=== PATIENT | female | born 1935 | race Caucasian/White ===

== ENCOUNTER 2016-10-21 08:00 | Inpatient (IN) | payer MEDICARE ==
[2016-10-21] VITALS (14 sets, daily range): BP systolic 111–148; BP diastolic 54–101
[~2016-10-21] VITALS: Ht 152.4 cm; Wt 46.3 kg
[2016-10-21 08:41] LABS: BASO % 1 % (0-3); EOS % 1 % (0-3); HEMATOCRIT 41.5 % (36.0-47.0); HEMOGLOBIN 13.9 g/dL (12.0-15.5); LYMPH # 1.4 x10^3/uL (1.0-4.8); LYMPH % 21 % (24-48); MEAN CORPUSCULAR HEMOGLOBIN 30 pg (25-35); MEAN CORPUSCULAR HGB CONC 34 g/dL (31-37); MEAN CORPUSCULAR VOLUME 90 fL (79-100); MONO % 7 % (0-9); NEUT % 70 % (31-73); PLATELET COUNT 234 x10^3/uL (140-400); RED BLOOD COUNT 4.63 x10^6/uL (3.50-5.40); RED CELL DISTRIBUTION WIDTH 13.4 % (11.5-14.5); WHITE BLOOD COUNT 6.6 x10^3/uL (4.0-11.0)
--- NOTE | 2016-10-21 08:41 | RAD ---
Indication dizziness A single view of the chest was obtained. No prior imaging is available. There are probable background changes of emphysema or fibrosis. There are changes compatible with scarring at the lung apices. There is very minimal volume loss at the left lung base. This likely reflects atelectasis. Pneumonia is not entirely excluded but felt less likely. A definite acute finding in the chest is not seen. Significant pleural fluid is not present and there is no pneumothorax. Cardiac stent is noted IMPRESSION: Chronic changes. Minimal volume loss at the left lung base. See above discussion. No definite acute finding apparent in the chest
[2016-10-21] MEDS ORDERED: MECLIZINE HCL 12.5 MG TABLET. PO ONE (08:45)
[2016-10-21] MEDS ORDERED: ONDANSETRON PF 4 MG/2 ML VIAL. IV ONE (08:45)
[2016-10-21 08:49] LABS: CALCIUM 9.7 mg/dL (8.5-10.1); CREATININE 0.9 mg/dL (0.6-1.0); GFR 60.2; POTASSIUM 3.8 mmol/L (3.5-5.1)
--- NOTE | 2016-10-21 08:49 | EKG ---
[facility] [address] [place] [address] Test Date: 2016-10-21 Test Time: 08:17:22 Pat Name: JOSH BAUER Department: Room: Gender: F General Production Manager: : [id number] Requested By: Malcolm MEJIA Order Number: [id number] Reading MD: Elizabeth Moser Measurements Intervals [place] Rate: 90 P: 62 [place]: 144 QRS: 72 QRSD: 76 T: 62 QT: 354 QTc: 437 Interpretive Statements SINUS RHYTHM NORMAL ECG RI6.01 Unconfirmed report No previous ECG available for comparison Electronically Signed On 10-23-2016 17:18:09 CDT by Elizabeth Moser
--- NOTE | 2016-10-21 09:15 | RAD ---
CT of the head without contrast, 10/21/2016: History: Weakness, dizziness No previous studies are available at this time for comparison purposes. There is a moderate sized abnormal extra-axial fluid collection overlying the right cerebral hemisphere. It is most prominent in the frontoparietal regions. It demonstrates mixed internal densities suggesting hemorrhage of varying ages. Its configuration indicates a subdural location. There is a marked right to left shift of the midline structures with effacement of the right lateral ventricle. A tiny density projected over the inferior aspect of the right cerebellar hemisphere on one slice most likely represents partial volume averaging from the skull base. No definite intra-axial hemorrhage is seen. There is mild cerebellar atrophy. IMPRESSION: 1. Large right extra-axial fluid collection of mixed densities compatible with a subdural hemorrhage of varying ages, probably subacute.. 2. Considerable associated mass effect and [id number] midline shift. Note: The findings were called to personnel in the [facility] ER at 9:10 AM on 10/21/2016. PQRS Compliance Statement: One or more of the following individualized dose reduction techniques were utilized for this examination: 1. Automated exposure control 2. Adjustment of the mA and/or kV according to patient size 3. Use of iterative reconstruction technique
[2016-10-21] MEDS ORDERED: ACETAMINOPHEN 325 MG TABLET. PO PRN (09:30)
[2016-10-21] MEDS ORDERED: ONDANSETRON PF 4 MG/2 ML VIAL. IV PRN ×3 (09:30→14:45)
--- NOTE | 2016-10-21 09:30 | PHYS DOC ---
Past Medical History Past Medical History: No Pertinent History Past Surgical History: No Surgical History Alcohol Use: None Drug Use: None Adult General Chief Complaint Chief Complaint: NEURO SYMPTOMS/DEFICITS HPI HPI Patient is a 81 year old female who presents with her daughter for 1 week of headache and 2 days gait instability. She also has dizziness and nausea that started yesterday. States her headache is achy, constant, focal in her right frontoparietal area. She denies trauma, falls, vision changes, numbness, tingling, weakness, fever or chills, neck pain or manipulation, chest pain, dyspnea, palpitations, abdominal pain, diarrhea, dysuria. 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 Daughter states they had a fall at home last week some time, but the patient did not report an injury. Review of Systems Review of Systems Constitutional: Denies fever or chills [] Eyes: Denies change in visual acuity, redness, or eye pain [] HENT: Denies nasal congestion or sore throat [] Respiratory: Denies cough or shortness of breath [] Cardiovascular: No additional information not addressed in HPI [] GI: Denies abdominal pain, nausea, vomiting, bloody stools or diarrhea [] : Denies dysuria or hematuria [] Musculoskeletal: Denies back pain or joint pain [] Integument: Denies rash or skin lesions [] Neurologic: Denies focal weakness or sensory changes [] Endocrine: Denies polyuria or polydipsia [] Current Medications Current Medications Current Medications Medications (Trade) Dose Ordered Sig/[facility] Start Time Stop Time Status Last Admin Dose Admin Meclizine HCl (Antivert) 25 mg 1X ONCE 10/21/16 08:45 10/21/16 08:46 DC 10/21/16 09:08 25 MG Ondansetron HCl (Zofran) 4 mg 1X ONCE 10/21/16 08:45 10/21/16 08:46 DC 10/21/16 08:58 4 MG Allergies Allergies Allergies Coded Allergies Type Severity Reaction Last Updated Verified morphine Allergy Unknown 10/21/16 Yes Physical Exam Physical Exam Constitutional: Well developed, well nourished, no acute distress, non-toxic appearance. [] HENT: Normocephalic, atraumatic, bilateral external ears normal, oropharynx moist, no oral exudates, nose normal. [] Eyes: PERRLA, EOMI, conjunctiva normal, no discharge. [] Neck: Normal range of motion, no tenderness, supple, no stridor. [] Cardiovascular:Heart rate regular rhythm [] Lungs & Thorax: Bilateral breath sounds clear to auscultation [] Abdomen: Bowel sounds normal, soft, no tenderness. [] Skin: Warm, dry, no erythema. Right breast with plaque-like ruborous rash that is nontender and not indurated [] Back: Normal range of motion. [] Extremities: No tenderness, ROM intact, no edema. [] Neurologic: Alert and oriented X 3, normal motor function, normal sensory function, no focal deficits noted, no nystagmus, no extremity drift, cranial nerves II through XII intact, gait not tested. [] Psychologic: Affect normal, judgement normal, mood normal. [] Current Patient Data Vital Signs Vital Signs Date Time Temp Pulse Resp B/P Pulse Ox O2 Delivery O2 Flow Rate FiO2 10/21/16 08:41 98.8 89 18 155/69 99 Room Air 98.8 Lab Values Laboratory Tests Test 10/21/16 08:12 10/21/16 08:30 Glucose (Fingerstick) 95mg/dL (70-99) White Blood Count 6.6x10^3/uL (4.0-11.0) Red Blood Count 4.63x10^6/uL (3.50-5.40) Hemoglobin 13.9g/dL (12.0-15.5) Hematocrit 41.5% (36.0-47.0) Mean Corpuscular Volume 90fL (79-100) Mean Corpuscular Hemoglobin 30pg (25-35) Mean Corpuscular Hemoglobin Concent 34g/dL (31-37) Red Cell Distribution Width 13.4% (11.5-14.5) Platelet Count 234x10^3/uL (140-400) Neutrophils (%) (Auto) 70% (31-73) Lymphocytes (%) (Auto) 21% (24-48) L Monocytes (%) (Auto) 7% (0-9) Eosinophils (%) (Auto) 1% (0-3) Basophils (%) (Auto) 1% (0-3) Neutrophils # (Auto) 4.6x10^3uL (1.8-7.7) Lymphocytes # (Auto) 1.4x10^3/uL (1.0-4.8) Monocytes # (Auto) 0.4x10^3/uL (0.0-1.1) Eosinophils # (Auto) 0.1x10^3/uL (0.0-0.7) Basophils # (Auto) 0.0x10^3/uL (0.0-0.2) Prothrombin Time 13.3SEC (11.7-14.0) Prothrombin Time INR 1.1 (0.8-1.1) PTT 31SEC (24-38) Sodium Level 142mmol/L (136-145) Potassium Level 3.8mmol/L (3.5-5.1) Chloride Level 105mmol/L (98-107) Carbon Dioxide Level 27mmol/L (21-32) Anion Gap 10 (6-14) Blood Urea Nitrogen 13mg/dL (7-20) Creatinine 0.9mg/dL (0.6-1.0) Estimated GFR (Cockcroft-Gault) 60.2 Glucose Level 107mg/dL (70-99) H Calcium Level 9.7mg/dL (8.5-10.1) Troponin I Quantitative < 0.017ng/mL (0.000-0.055) Laboratory Tests 10/21/16 08:30 Laboratory Tests 10/21/16 08:30 EKG EKG EKG as interpreted by me as normal sinus rhythm, rate 90, no ST-T changes, normal intervals, no ectopy Radiology/Procedures Radiology/Procedures Chest xray as interpreted by me with no acute cardiopulmonary disease process Head CT without contrast IMPRESSION: 1. Large right extra-axial fluid collection of mixed densities compatible with a subdural hemorrhage of varying ages, probably subacute.. 2. Considerable associated mass effect and [id number] midline shift. Note: The findings were called to personnel in the [facility] ER at 9:10 AM on 10/21/2016. DICTATED and SIGNED BY: DIANE SARMIENTO MD DATE: 10/21/16 0902 Course & Med Decision Making Course & Med Decision Making Pertinent Labs and Imaging studies reviewed. (See chart for details) Laboratory evaluation is unremarkable. Head CT noted as above. Discussed case with Dr. Viveros, neurosurgery, who came to see the patient at bedside as she was apprehensive about admission and decision to accept procedure. She has agreed to surgical intervention will be admitted to the ICU. Discussed case with Dr. Freire, who will admit. [place]on[place] Disclaimer Dragon Disclaimer This electronic medical record was generated, in whole or in part, using a voice recognition dictation system. Departure Departure Impression: Primary Impression: Subdural hemorrhage Additional Impression: Dizziness Disposition: ADMITTED INPATIENT Condition: CRITICAL Referrals: TOD SAL MD (PCP) Problem Qualifiers Malcolm MEJIA MD Oct 21, 2016 09:30
[2016-10-21 09:31] LABS: INR 1.1 (0.8-1.1); PROTHROMBIN TIME PATIENT 13.3 SEC (11.7-14.0)
[2016-10-21] MEDS ORDERED: IV RINGERS,LACTATED 1000ML 1,000 ML IV SCH (09:54)
[2016-10-21] MEDS ORDERED: PROCHLORPERAZINE 10 MG/2 ML VIAL. IV PRN (10:00)
[2016-10-21] MEDS ORDERED: LIDOCAINE 1% 1 ML SYRINGE. ID PRN (10:00)
[2016-10-21] MEDS ORDERED: POTASSIUM CL 20MEQ D5-0.9%NACL 1,000 ML IV ONE (10:00)
[2016-10-21] MEDS ORDERED: fentaNYL PF VIAL 100 MCG/2 ML VIAL IV PRN ×3 (10:00→17:15)
[2016-10-21] MEDS ORDERED: PROPOFOL 20 ML IV ONE (10:19)
[2016-10-21] MEDS ORDERED: LIDOCAINE 2% 100 MG/5 ML SYRINGE. ONE (10:19)
[2016-10-21] MEDS ORDERED: ONDANSETRON PF 4 MG/2 ML VIAL. ONE (10:19)
[2016-10-21] MEDS ORDERED: fentaNYL PF VIAL 100 MCG/2 ML VIAL ONE (10:19)
[2016-10-21] MEDS ORDERED: DEXAMETHASONE SOD PHOS 20 MG/5 ML VIAL. ONE (10:19)
[2016-10-21] MEDS ORDERED: ROCURONIUM 50 MG/5 ML VIAL. ONE (10:20)
[2016-10-21] MEDS ORDERED: MINERAL OIL/PETROLATUM,WHITE OPHTH OINT 3.5GM TUBE. ONE (10:26)
[2016-10-21] MEDS ORDERED: BACITRACIN 50,000 UNIT in IV NORMAL SALINE 1000ML BAG 1,000 ML IRR ONE (11:30)
[2016-10-21] MEDS ORDERED: BUPIVAC MPF-EPI 0.5%-1:200000 30 ML VIAL. ONE (11:53)
[2016-10-21] MEDS ORDERED: SURGICEL HEMOSTAT 4X8 EACH. ONE (11:53)
[2016-10-21] MEDS ORDERED: GELATIN SPONGE SIZE 100. ONE (11:54)
[2016-10-21] MEDS ORDERED: THROMBIN TOPICAL 20,000 UNIT SPRAY.SYRN KIT TP ONE (11:54)
[2016-10-21] MEDS: fentaNYL PF VIAL 100 MCG/2 ML VIAL IV PRN ×3 (11:55→18:32)
[2016-10-21] MEDS ORDERED: PHENYLEPHRINE in 0.9% NACL PF 1 MG/10 ML DISP.SYRIN. IV ONE (12:56)
[2016-10-21] MEDS ORDERED: GLYCOPYRROLATE 1 MG/5 ML VIAL. ONE (12:56)
[2016-10-21] MEDS ORDERED: NEOSTIGMINE METHYLSULFATE 5 MG/5 ML SYRINGE. ONE (13:47)
[2016-10-21] MEDS ORDERED: DESFLURANE 31 TO 60 MINUTES IH ONE (13:49)
[2016-10-21] MEDS ORDERED: SEVOFLURANE 31 TO 60 MINUTES. IH ONE (13:49)
--- NOTE | 2016-10-21 14:44 | PDOC1 ---
History and Physical Date of Admission Date of Admission 10/21/16 Identification/Chief Complaint Chief Complaint dizzy Problems: Source Source: Caregiver, Chart review, Patient History of Present Illness History of Present Illness HPI HPI Patient is a 81 year old female who presents with her daughter for 1 week of headache and 2 days gait instability. pt lives with her , last time was seen was 5ds ago was normal. She denies fall. she feels some dizzy, nauseated from yesterday, frontal headache, constant. no other neurologic deficit. CT in ER showed a large right subdural hemarrhage with left shift, subacute. 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 Daughter states they had a fall at home last week some time, but the patient did not report an injury. Past Medical History Cardiovascular: CAD Past Surgical History Past Surgical History: No pertinent history Family History Family History: No Significant Social History Smoke: No ALCOHOL: none Drugs: None Current Problem List Problem List Problems Medical Problems: (1) Dizziness Status: Acute (2) Subdural hemorrhage Status: Acute Current Medications Current Medications Current Medications Medications (Trade) Dose Ordered Sig/[facility] Start Time Stop Time Status Last Admin Dose Admin Acetaminophen 650 mg 650 mg PRN Q4HRS PRN 10/21/16 09:30 10/22/16 09:29 Bacitracin/Sodium Chloride (Bacitracin/Iv Sodium Chloride 0.9% 1000ml Bag) 1,000 ml @ 1,000 mls/hr 1X PERIOP ONCE 10/21/16 11:30 10/21/16 12:29 DC 10/21/16 13:12 Bupivacaine HCl/ Epinephrine Bitart (Sensorcain-Mpf Epi 0.5%-1:[id number]) 30 ml STK-MED ONCE 10/21/16 11:53 10/21/16 11:54 DC 10/21/16 13:12 4 ML Cefazolin Sodium/ Dextrose (Ancef 2gm Premix) 50 ml @ 100 mls/hr 1X PREOP 10/21/16 09:45 10/21/16 18:00 10/21/16 13:07 100 MLS/HR Cellulose 1 each STK-MED ONCE 10/21/16 11:53 10/21/16 11:54 DC Desflurane (Suprane) 30 ml STK-MED ONCE 10/21/16 13:49 10/21/16 13:50 DC Dexamethasone Sodium Phosphate (Decadron) 20 mg STK-MED ONCE 10/21/16 10:19 10/21/16 10:20 DC Fentanyl Citrate (Fentanyl 2ml Vial) 100 mcg STK-MED ONCE 10/21/16 10:19 10/21/16 10:20 DC Fentanyl Citrate 50 mcg 50 mcg PRN Q5MIN PRN 10/21/16 10:00 10/22/16 09:59 Gelatin (Gelfoam Size 100) 1 each STK-MED ONCE 10/21/16 11:54 10/21/16 11:55 DC 10/21/16 13:12 1 EACH Glycopyrrolate (Robinul) 1 mg STK-MED ONCE 10/21/16 12:56 10/21/16 12:57 DC Lactated Ringer's (Iv Lactated Ringers) 1,000 ml @ 30 mls/hr Q24H 10/21/16 09:54 10/21/16 21:53 Lidocaine HCl (Lidocaine HCl 2% Abboject) 100 mg STK-MED ONCE 10/21/16 10:19 10/21/16 10:20 DC Meclizine HCl (Antivert) 25 mg 1X ONCE 10/21/16 08:45 10/21/16 08:46 DC 10/21/16 09:08 25 MG Multi-Ingred Cream/Lotion/Oil/ Oint 7 luksaz 7 lukasz STK-MED ONCE 10/21/16 10:26 10/21/16 10:27 DC Neostigmine Methylsulfate 5 mg STK-MED ONCE 10/21/16 13:47 10/21/16 13:48 DC Ondansetron HCl (Zofran) 4 mg PRN Q6HRS PRN 10/21/16 10:00 10/22/16 09:59 Ondansetron HCl 4 mg 4 mg STK-MED ONCE 10/21/16 10:19 10/21/16 10:20 DC Phenylephrine HCl 1 mg STK-MED ONCE 10/21/16 12:56 10/21/16 12:57 DC Potassium Chloride/Dextrose/ Sod Cl 1,000 ml @ 75 mls/hr 1X ONCE 10/21/16 10:00 10/21/16 23:19 10/21/16 10:18 75 MLS/HR Prochlorperazine Edisylate (Compazine) 5 mg PACU PRN PRN 10/21/16 10:00 10/22/16 09:59 Propofol (Diprivan) 20 ml @ As Directed STK-MED ONCE 10/21/16 10:19 10/21/16 10:20 DC Rocuronium [place] (Zemuron) 50 mg STK-MED ONCE 10/21/16 10:20 10/21/16 10:21 DC Sevoflurane (Ultane) 30 ml STK-MED ONCE 10/21/16 13:49 10/21/16 13:50 DC Thrombin 20,000 unit STK-MED ONCE 10/21/16 11:54 10/21/16 11:55 DC 10/21/16 13:12 20,000 UNIT Allergies Allergies Allergies Coded Allergies Type Severity Reaction Last Updated Verified morphine Allergy Unknown 10/21/16 Yes ROS Review of System CONSTITUTIONAL: No fever or chills EYES: No recent changes SKIN: No rash or itching CARDIOVASCULAR: No chest pain, syncope, palpitations, or edema RESPIRATORY: No SOB or cough GASTROINTESTINAL: No nausea, vomiting or abdominal pain NEUROLOGICAL: No headaches or weakness ENDOCRINE: No cold or heat intolerance GENITOURINARY: No urgency or frequency of urination MUSCULOSKELETAL: No back pain or joint pain LYMPHATICS: No enlarged lymph nodes PSYCHIATRIC: No anxiety or depression Physical Exam Physical Exam GEN.: No apparent distress. Alert and oriented. HEENT: Head is normocephalic, atraumatic NECK: Supple. LUNGS: Clear to auscultation. HEART: RRR, S1, S2 present. Peripheral pulses intact ABDOMEN: Soft, nontender. Positive bowel sounds. EXTREMITIES: Without any cyanosis. NEUROLOGIC: Normal speech, normal tone PSYCHIATRIC: Normal affect, normal mood. SKIN: No ulcerations Vitals Vitals Vital Signs Date Time Temp Pulse Resp B/P Pulse Ox O2 Delivery O2 Flow Rate FiO2 10/21/16 14:28 85 12 140/69 98 Room Air 10/21/16 14:23 10 10/21/16 14:16 99.0 99.0 Labs Labs Laboratory Tests Test 10/21/16 08:12 10/21/16 08:30 Glucose (Fingerstick) 95mg/dL (70-99) White Blood Count 6.6x10^3/uL (4.0-11.0) Red Blood Count 4.63x10^6/uL (3.50-5.40) Hemoglobin 13.9g/dL (12.0-15.5) Hematocrit 41.5% (36.0-47.0) Mean Corpuscular Volume 90fL (79-100) Mean Corpuscular Hemoglobin 30pg (25-35) Mean Corpuscular Hemoglobin Concent 34g/dL (31-37) Red Cell Distribution Width 13.4% (11.5-14.5) Platelet Count 234x10^3/uL (140-400) Neutrophils (%) (Auto) 70% (31-73) Lymphocytes (%) (Auto) 21% (24-48) Monocytes (%) (Auto) 7% (0-9) Eosinophils (%) (Auto) 1% (0-3) Basophils (%) (Auto) 1% (0-3) Neutrophils # (Auto) 4.6x10^3uL (1.8-7.7) Lymphocytes # (Auto) 1.4x10^3/uL (1.0-4.8) Monocytes # (Auto) 0.4x10^3/uL (0.0-1.1) Eosinophils # (Auto) 0.1x10^3/uL (0.0-0.7) Basophils # (Auto) 0.0x10^3/uL (0.0-0.2) Prothrombin Time 13.3SEC (11.7-14.0) Prothromb Time International Ratio 1.1 (0.8-1.1) Activated Partial Thromboplast Time 31SEC (24-38) Sodium Level 142mmol/L (136-145) Potassium Level 3.8mmol/L (3.5-5.1) Chloride Level 105mmol/L (98-107) Carbon Dioxide Level 27mmol/L (21-32) Anion Gap 10 (6-14) Blood Urea Nitrogen 13mg/dL (7-20) Creatinine 0.9mg/dL (0.6-1.0) Estimated GFR (Cockcroft-Gault) 60.2 Glucose Level 107mg/dL (70-99) Calcium Level 9.7mg/dL (8.5-10.1) Troponin I Quantitative < 0.017ng/mL (0.000-0.055) Laboratory Tests Test 10/21/16 08:12 10/21/16 08:30 Glucose (Fingerstick) 95mg/dL (70-99) White Blood Count 6.6x10^3/uL (4.0-11.0) Red Blood Count 4.63x10^6/uL (3.50-5.40) Hemoglobin 13.9g/dL (12.0-15.5) Hematocrit 41.5% (36.0-47.0) Mean Corpuscular Volume 90fL (79-100) Mean Corpuscular Hemoglobin 30pg (25-35) Mean Corpuscular Hemoglobin Concent 34g/dL (31-37) Red Cell Distribution Width 13.4% (11.5-14.5) Platelet Count 234x10^3/uL (140-400) Neutrophils (%) (Auto) 70% (31-73) Lymphocytes (%) (Auto) 21% (24-48) Monocytes (%) (Auto) 7% (0-9) Eosinophils (%) (Auto) 1% (0-3) Basophils (%) (Auto) 1% (0-3) Neutrophils # (Auto) 4.6x10^3uL (1.8-7.7) Lymphocytes # (Auto) 1.4x10^3/uL (1.0-4.8) Monocytes # (Auto) 0.4x10^3/uL (0.0-1.1) Eosinophils # (Auto) 0.1x10^3/uL (0.0-0.7) Basophils # (Auto) 0.0x10^3/uL (0.0-0.2) Prothrombin Time 13.3SEC (11.7-14.0) Prothromb Time International Ratio 1.1 (0.8-1.1) Activated Partial Thromboplast Time 31SEC (24-38) Sodium Level 142mmol/L (136-145) Potassium Level 3.8mmol/L (3.5-5.1) Chloride Level 105mmol/L (98-107) Carbon Dioxide Level 27mmol/L (21-32) Anion Gap 10 (6-14) Blood Urea Nitrogen 13mg/dL (7-20) Creatinine 0.9mg/dL (0.6-1.0) Estimated GFR (Cockcroft-Gault) 60.2 Glucose Level 107mg/dL (70-99) Calcium Level 9.7mg/dL (8.5-10.1) Troponin I Quantitative < 0.017ng/mL (0.000-0.055) VTE Prophylaxis Ordered VTE Prophylaxis Devices: Yes VTE Pharmacological Prophylaxi: No Assessment/Plan Assessment/Plan 1. dizzy, headache 2/2 subacute rt subdural hemarrhage, likely 2/2 fall at home 2. HTN 3. H/O cad WITH pci PLAN: icu CARE NEUROSX consulted, craniotomy and hematoma evacuation on 10/21 keep BP <160/100 need home meds gi ppx ptot tmr if stable SAVANNA BLANCO MD Oct 21, 2016 14:44
[2016-10-21] MEDS ORDERED: hydrALAZINE 20 MG/ML VIAL. IVP PRN (14:45)
[2016-10-21] MEDS: PANTOPRAZOLE 40 MG TABLET.DR. PO SCH (16:00)
[2016-10-21] MEDS ORDERED: diphenhydrAMINE HCL 25 MG CAPSULE PO PRN (17:15)
[2016-10-21] MEDS ORDERED: MAGNESIUM HYDROXIDE 2,400 MG/30 ML ORAL.SUSP. PO PRN (17:15)
[2016-10-21] MEDS ORDERED: MAG HYDROX/ALUMINUM HYD/SIMETH 30 ML ORAL.SUSP PO PRN (17:15)
[2016-10-21] MEDS ORDERED: 0.9 % SODIUM CHLORIDE 10 ML DISP.SYRIN. IV PRN (17:15)
[2016-10-21] MEDS ORDERED: DEXTROSE 50% 25 GM / 50ML DISP.SYRIN. IV PRN (17:15)
[2016-10-21] MEDS ORDERED: CALCIUM CARBONATE 500 MG TAB.CHEW PO PRN (17:15)
[2016-10-21] MEDS ORDERED: diphenhydrAMINE 50 MG/ML VIAL IV PRN (17:15)
[2016-10-21] MEDS: DOCUSATE SODIUM 100 MG CAPSULE. PO SCH (20:48)
[2016-10-22] VITALS (17 sets, daily range): BP systolic 105–152; BP diastolic 44–78
[2016-10-22] MEDS: fentaNYL PF VIAL 100 MCG/2 ML VIAL IV PRN ×3 (04:54→17:10)
[2016-10-22 05:12] LABS: BASO % 0 % (0-3); EOS % 0 % (0-3); HEMATOCRIT 35.9 % (36.0-47.0); HEMOGLOBIN 12.2 g/dL (12.0-15.5); LYMPH # 1.6 x10^3/uL (1.0-4.8); LYMPH % 18 % (24-48); MEAN CORPUSCULAR HEMOGLOBIN 30 pg (25-35); MEAN CORPUSCULAR HGB CONC 34 g/dL (31-37); MEAN CORPUSCULAR VOLUME 89 fL (79-100); MONO % 8 % (0-9); NEUT % 74 % (31-73); PLATELET COUNT 206 x10^3/uL (140-400); RED BLOOD COUNT 4.03 x10^6/uL (3.50-5.40); RED CELL DISTRIBUTION WIDTH 13.2 % (11.5-14.5); WHITE BLOOD COUNT 8.8 x10^3/uL (4.0-11.0)
[2016-10-22 05:28] LABS: CREATININE 0.7 mg/dL (0.6-1.0); GFR 80.5; POTASSIUM 4.4 mmol/L (3.5-5.1)
[2016-10-22] MEDS ORDERED: IV NORMAL SALINE 1000ML BAG 1,000 ML IV ONE (08:45)
[2016-10-22] MEDS: PANTOPRAZOLE 40 MG TABLET.DR. PO SCH (09:30)
[2016-10-22] MEDS: DOCUSATE SODIUM 100 MG CAPSULE. PO SCH ×2 (09:30→21:00)
--- NOTE | 2016-10-22 12:24 | PDOC ---
PROGRESS NOTES Chief Complaint Chief Complaint 1. dizzy, headache 2/2 subacute rt subdural hemarrhage, likely 2/2 fall at home , s/p rt craniotomy and hematoma evacuation 10/21 2. HTN 3. H/O cad WITH pci PLAN: [facility] consulted, craniotomy and hematoma evacuation on 10/21 keep BP <160/100 need home meds gi ppx add lisinopril 10mg daily swallow eval ptot History of Present Illness History of Present Illness feels ok, headache better 1 PARAM sangueous drainage Vitals Vitals Vital Signs Date Time Temp Pulse Resp B/P Pulse Ox O2 Delivery O2 Flow Rate FiO2 10/22/16 09:00 98 26 152/73 100 Room Air 10/22/16 04:00 98.2 98.2 10/21/16 14:30 2.0 Physical Exam Physical Exam 1 PARAM sangueous drainage General: Alert, Oriented X3, Cooperative Heart: Regular rate, Normal S1, Normal S2 Lungs: Clear Abdomen: Normal bowel sounds, Soft Extremities: No clubbing Labs LABS Laboratory Tests Test 10/22/16 04:40 10/22/16 04:45 White Blood Count 8.8x10^3/uL (4.0-11.0) Red Blood Count 4.03x10^6/uL (3.50-5.40) Hemoglobin 12.2g/dL (12.0-15.5) Hematocrit 35.9% (36.0-47.0) Mean Corpuscular Volume 89fL (79-100) Mean Corpuscular Hemoglobin 30pg (25-35) Mean Corpuscular Hemoglobin Concent 34g/dL (31-37) Red Cell Distribution Width 13.2% (11.5-14.5) Platelet Count 206x10^3/uL (140-400) Neutrophils (%) (Auto) 74% (31-73) Lymphocytes (%) (Auto) 18% (24-48) Monocytes (%) (Auto) 8% (0-9) Eosinophils (%) (Auto) 0% (0-3) Basophils (%) (Auto) 0% (0-3) Neutrophils # (Auto) 6.5x10^3uL (1.8-7.7) Lymphocytes # (Auto) 1.6x10^3/uL (1.0-4.8) Monocytes # (Auto) 0.7x10^3/uL (0.0-1.1) Eosinophils # (Auto) 0.0x10^3/uL (0.0-0.7) Basophils # (Auto) 0.0x10^3/uL (0.0-0.2) Sodium Level 139mmol/L (136-145) Potassium Level 4.4mmol/L (3.5-5.1) Chloride Level 106mmol/L (98-107) Carbon Dioxide Level 22mmol/L (21-32) Anion Gap 11 (6-14) Blood Urea Nitrogen 14mg/dL (7-20) Creatinine 0.7mg/dL (0.6-1.0) Estimated GFR (Cockcroft-Gault) 80.5 Glucose Level 92mg/dL (70-99) Calcium Level 9.0mg/dL (8.5-10.1) Review of Systems Review of Systems no fever, chills, sob or chest pain Assessment and Plan Assessmemt and Plan Problems Medical Problems: (1) Dizziness Status: Acute (2) Subdural hemorrhage Status: Acute Problems: Comment Review of Relevant I have reviewed the following items misael (where applicable) has been applied. Labs Laboratory Tests Test 10/21/16 08:12 10/21/16 08:30 10/21/16 11:10 10/22/16 04:40 Glucose (Fingerstick) 95mg/dL (70-99) White Blood Count 6.6x10^3/uL (4.0-11.0) 8.8x10^3/uL (4.0-11.0) Red Blood Count 4.63x10^6/uL (3.50-5.40) 4.03x10^6/uL (3.50-5.40) Hemoglobin 13.9g/dL (12.0-15.5) 12.2g/dL (12.0-15.5) Hematocrit 41.5% (36.0-47.0) 35.9% (36.0-47.0) Mean Corpuscular Volume 90fL (79-100) 89fL (79-100) Mean Corpuscular Hemoglobin 30pg (25-35) 30pg (25-35) Mean Corpuscular Hemoglobin Concent 34g/dL (31-37) 34g/dL (31-37) Red Cell Distribution Width 13.4% (11.5-14.5) 13.2% (11.5-14.5) Platelet Count 234x10^3/uL (140-400) 206x10^3/uL (140-400) Neutrophils (%) (Auto) 70% (31-73) 74% (31-73) Lymphocytes (%) (Auto) 21% (24-48) 18% (24-48) Monocytes (%) (Auto) 7% (0-9) 8% (0-9) Eosinophils (%) (Auto) 1% (0-3) 0% (0-3) Basophils (%) (Auto) 1% (0-3) 0% (0-3) Neutrophils # (Auto) 4.6x10^3uL (1.8-7.7) 6.5x10^3uL (1.8-7.7) Lymphocytes # (Auto) 1.4x10^3/uL (1.0-4.8) 1.6x10^3/uL (1.0-4.8) Monocytes # (Auto) 0.4x10^3/uL (0.0-1.1) 0.7x10^3/uL (0.0-1.1) Eosinophils # (Auto) 0.1x10^3/uL (0.0-0.7) 0.0x10^3/uL (0.0-0.7) Basophils # (Auto) 0.0x10^3/uL (0.0-0.2) 0.0x10^3/uL (0.0-0.2) Prothrombin Time 13.3SEC (11.7-14.0) Prothromb Time International Ratio 1.1 (0.8-1.1) Activated Partial Thromboplast Time 31SEC (24-38) Sodium Level 142mmol/L (136-145) Potassium Level 3.8mmol/L (3.5-5.1) Chloride Level 105mmol/L (98-107) Carbon Dioxide Level 27mmol/L (21-32) Anion Gap 10 (6-14) Blood Urea Nitrogen 13mg/dL (7-20) Creatinine 0.9mg/dL (0.6-1.0) Estimated GFR (Cockcroft-Gault) 60.2 Glucose Level 107mg/dL (70-99) Calcium Level 9.7mg/dL (8.5-10.1) Troponin I Quantitative < 0.017ng/mL (0.000-0.055) Nasal Screen MRSA (PCR) Negative (Negative) Test 10/22/16 04:45 Sodium Level 139mmol/L (136-145) Potassium Level 4.4mmol/L (3.5-5.1) Chloride Level 106mmol/L (98-107) Carbon Dioxide Level 22mmol/L (21-32) Anion Gap 11 (6-14) Blood Urea Nitrogen 14mg/dL (7-20) Creatinine 0.7mg/dL (0.6-1.0) Estimated GFR (Cockcroft-Gault) 80.5 Glucose Level 92mg/dL (70-99) Calcium Level 9.0mg/dL (8.5-10.1) Laboratory Tests Test 10/22/16 04:40 10/22/16 04:45 White Blood Count 8.8x10^3/uL (4.0-11.0) Red Blood Count 4.03x10^6/uL (3.50-5.40) Hemoglobin 12.2g/dL (12.0-15.5) Hematocrit 35.9% (36.0-47.0) Mean Corpuscular Volume 89fL (79-100) Mean Corpuscular Hemoglobin 30pg (25-35) Mean Corpuscular Hemoglobin Concent 34g/dL (31-37) Red Cell Distribution Width 13.2% (11.5-14.5) Platelet Count 206x10^3/uL (140-400) Neutrophils (%) (Auto) 74% (31-73) Lymphocytes (%) (Auto) 18% (24-48) Monocytes (%) (Auto) 8% (0-9) Eosinophils (%) (Auto) 0% (0-3) Basophils (%) (Auto) 0% (0-3) Neutrophils # (Auto) 6.5x10^3uL (1.8-7.7) Lymphocytes # (Auto) 1.6x10^3/uL (1.0-4.8) Monocytes # (Auto) 0.7x10^3/uL (0.0-1.1) Eosinophils # (Auto) 0.0x10^3/uL (0.0-0.7) Basophils # (Auto) 0.0x10^3/uL (0.0-0.2) Sodium Level 139mmol/L (136-145) Potassium Level 4.4mmol/L (3.5-5.1) Chloride Level 106mmol/L (98-107) Carbon Dioxide Level 22mmol/L (21-32) Anion Gap 11 (6-14) Blood Urea Nitrogen 14mg/dL (7-20) Creatinine 0.7mg/dL (0.6-1.0) Estimated GFR (Cockcroft-Gault) 80.5 Glucose Level 92mg/dL (70-99) Calcium Level 9.0mg/dL (8.5-10.1) Medications Current Medications Ondansetron HCl (Zofran) 4 mg 1X ONCE IV Last administered on 10/21/16 08:58 ; Start 10/21/16 at 08:45; Stop 10/21/16 at 08:46; Status DC Meclizine HCl (Antivert) 25 mg 1X ONCE PO Last administered on 10/21/16 09:08 ; Start 10/21/16 at 08:45; Stop 10/21/16 at 08:46; Status DC Ondansetron HCl (Zofran) 4 mg PRN Q8HRS PRN IV NAUSEA/VOMITING; Start 10/21/16 at 09:30; Stop 10/22/16 at 09:29; Status DC Fentanyl Citrate (Fentanyl 2ml Vial) 50 mcg PRN Q2HR PRN IV PAIN Last administered on 10/22/16 04:54; Start 10/21/16 at 09:30; Stop 10/22/16 at 09:29 ; Status DC Acetaminophen 650 mg 650 mg PRN Q4HRS PRN PO FEVER; Start 10/21/16 at 09:30; Stop 10/22/16 at 09:29; Status DC Potassium Chloride/Dextrose/ Sod Cl 1,000 ml @ 75 mls/hr 1X ONCE IV Last administered on 4/21/17at 10:18; Start 10/21/16 at 10:00; Stop 10/21/16 at 23:19 ; Status DC Cefazolin Sodium/ Dextrose (Ancef 2gm Premix) 50 ml @ 100 mls/hr 1X PREOP IV Last administered on 10/21/16t 13:07; Start 10/21/16 at 09:45; Stop 10/21/16 at 18:00; Status DC Ondansetron HCl (Zofran) 4 mg PRN Q6HRS PRN IV NAUSEA/VOMITING; Start 10/21/16 at 10:00; Stop 10/22/16 at 09:59; Status DC Fentanyl Citrate (Fentanyl 2ml Vial) 25 mcg PRN Q5MIN PRN IV MILD PAIN Last administered on 10/21/16t 14:37; Start 10/21/16 at 10:00; Stop 10/22/16 at 09:59 ; Status DC Fentanyl Citrate 50 mcg 50 mcg PRN Q5MIN PRN IV MODERATE PAIN; Start 10/21/16 at 10:00; Stop 10/22/16 at 09:59; Status DC Lactated Ringer's (Iv Lactated Ringers) 1,000 ml @ 30 mls/hr Q24H IV ; Start at 09:54; Stop 10/21/16 at 21:53; Status DC Lidocaine HCl 2 ml PRN 1X PRN ID PRIOR TO IV START; Start 10/21/16 at 10:00; Stop 10/22/16 at 09:59; Status DC Prochlorperazine Edisylate (Compazine) 5 mg PACU PRN PRN IV NAUSEA, MRX1; Start 10/21/16 at 10:00; Stop 10/22/16 at 09:59; Status DC Dexamethasone Sodium Phosphate (Decadron) 20 mg STK-MED ONCE .ROUTE ; Start at 10:19; Stop 10/21/16 at 10:20; Status DC Ondansetron HCl 4 mg 4 mg STK-MED ONCE .ROUTE ; Start 10/21/16 at 10:19; Stop at 10:20; Status DC Propofol (Diprivan) 20 ml @ As Directed STK-MED ONCE IV ; Start 10/21/16 at 10: 19; Stop 10/21/16 at 10:20; Status DC Lidocaine HCl (Lidocaine HCl 2% Abboject) 100 mg STK-MED ONCE .ROUTE ; Start at 10:19; Stop 10/21/16 at 10:20; Status DC Fentanyl Citrate (Fentanyl 2ml Vial) 100 mcg STK-MED ONCE .ROUTE ; Start at 10:19; Stop 10/21/16 at 10:20; Status DC Rocuronium [place] (Zemuron) 50 mg STK-MED ONCE .ROUTE ; Start 10/21/16 at 10:20 ; Stop 10/21/16 at 10:21; Status DC Multi-Ingred Cream/Lotion/Oil/ Oint 7 lukasz 7 lukasz STK-MED ONCE .ROUTE ; Start at 10:26; Stop 10/21/16 at 10:27; Status DC Bacitracin/Sodium Chloride (Bacitracin/Iv Sodium Chloride 0.9% 1000ml Bag) 1, 000 ml @ 1,000 mls/hr 1X PERIOP ONCE IRR Last administered on 10/21/16 13:12 ; Start 10/21/16 at 11:30; Stop 10/21/16 at 12:29; Status DC Cellulose 1 each STK-MED ONCE .ROUTE ; Start 10/21/16 at 11:53; Stop 10/21/16 at 11:54; Status DC Bupivacaine HCl/ Epinephrine Bitart (Sensorcain-Mpf Epi 0.5%-1:[id number]) 30 ml STK -MED ONCE .ROUTE Last administered on 10/21/16 13:12; Start 10/21/16 at 11:53 ; Stop 10/21/16 at 11:54; Status DC Gelatin (Gelfoam Size 100) 1 each STK-MED ONCE .ROUTE Last administered on 13:12; Start 10/21/16 at 11:54; Stop 10/21/16 at 11:55; Status DC Thrombin 20,000 unit STK-MED ONCE TP Last administered on 10/21/16 13:12; Start 10/21/16 at 11:54; Stop 10/21/16 at 11:55; Status DC Phenylephrine HCl 1 mg STK-MED ONCE IV ; Start 10/21/16 at 12:56; Stop 10/21/16 at 12:57; Status DC Glycopyrrolate (Robinul) 1 mg STK-MED ONCE .ROUTE ; Start 10/21/16 at 12:56; Stop 10/21/16 at 12:57; Status DC Neostigmine Methylsulfate 5 mg STK-MED ONCE .ROUTE ; Start 10/21/16 at 13:47; Stop 10/21/16 at 13:48; Status DC Desflurane (Suprane) 30 ml STK-MED ONCE IH ; Start 10/21/16 at 13:49; Stop 10/21 at 13:50; Status DC Sevoflurane (Ultane) 30 ml STK-MED ONCE IH ; Start 10/21/16 at 13:49; Stop 10/21 at 13:50; Status DC Acetaminophen (Tylenol) 650 mg PRN Q6HRS PRN PO FEVER; Start 10/21/16 at 14:45 Ondansetron HCl (Zofran) 4 mg PRN Q6HRS PRN IV NAUSEA/VOMITING; Start 10/21/16 at 14:45 Hydralazine HCl (Apresoline) 5 mg PRN Q4HRS PRN IVP ELEVATED BP, SEE COMMENTS; Start 10/21/16 at 14:45 Pantoprazole Sodium (Protonix) 40 mg DAILYAC PO Last administered on 10/22/16t 09:30; Start 10/21/16 at 15:00 Al Hydroxide/Mg Hydroxide (Mylanta Plus Xs) 30 ml PRN Q3HRS PRN PO HEARTBURN / GAS; Start 10/21/16 at 17:15 Calcium Carbonate/ Glycine (Tums) 500 mg PRN Q3HRS PRN PO INDIGESTION; Start at 17:15 Diphenhydramine HCl (Benadryl) 25 mg PRN Q6HRS PRN PO ITCHING; Start 10/21/16 at 17:15 Diphenhydramine HCl (Benadryl) 25 mg PRN Q6HRS PRN IV ITCHING; Start 10/21/16 at 17:15 Sodium Chloride (Normal Saline Flush) 3 ml QSHIFT PRN IV AFTER MEDS AND BLOOD DRAWS; Start 10/21/16 at 17:15 Dextrose (Dextrose 50%-Water Syringe) 12.5 gm PRN Q15MIN PRN IV SEE COMMENTS; Start 10/21/16 at 17:15 Docusate Sodium (Colace) 100 mg BID PO Last administered on 10/22/16t 09:30; Start 10/21/16 at 21:00 Magnesium Hydroxide (Milk Of Magnesia) 2,400 mg PRN Q12HR PRN PO CONSTIPATION; Start 10/21/16 at 17:15 Ondansetron HCl 4 mg 4 mg PRN Q6HRS PRN IV NAUESA, 1ST CHOICE; Start 10/21/16 at 17:15 Cefazolin Sodium/ Sodium Chloride (Ancef/Iv Sodium Chloride 0.9% 50ml) 50 ml @ 100 mls/hr Q8H IV Last administered on 10/22/16t 04:43; Start 10/21/16 at 21:00 ; Stop 10/22/16 at 13:29 Fentanyl Citrate (Fentanyl 2ml Vial) 50 mcg PRN Q2HR PRN IV PAIN; Start at 17:15 Fentanyl Citrate 25 mcg 25 mcg PRN Q2HR PRN IV PAIN; Start 10/21/16 at 17:15 Sodium Chloride (Iv Sodium Chloride 0.9% 1000ml Bag) 1,000 ml @ 75 mls/hr 1X ONCE IV ; Start 10/22/16 at 08:45; Stop 10/22/16 at 22:04 Active Scripts Active No Active Prescriptions or Reported Medications Vitals/I & O Vital Sign - Last 24 Hours 10/21/16 10/21/16 10/21/16 10/21/16 12:25 14:16 14:20 14:23 Temp 99.0 99.0 Pulse 82 Resp 18 24 B/P 112/79 140/69 Pulse Ox 98 100 100 O2 Delivery Simple Mask Mask Simple Mask O2 Flow Rate 10 10 10 10/21/16 10/21/16 10/21/16 10/21/16 14:28 14:30 14:44 14:59 Pulse 85 80 85 91 Resp 12 20 12 16 B/P 140/69 126/101 153/65 138/66 Pulse Ox 98 100 96 97 O2 Delivery Room Air Nasal Cannula Room Air Room Air O2 Flow Rate 2.0 10/21/16 10/21/16 10/21/16 10/21/16 15:00 15:15 15:30 16:00 Temp 98.6 98.6 Pulse 88 94 90 Resp 15 12 12 12 B/P 138/66 119/54 128/61 Pulse Ox 97 97 96 97 O2 Delivery Room Air Room Air Room Air Room Air 10/21/16 10/21/16 10/21/16 10/21/16 16:00 16:01 16:30 17:00 Pulse 88 92 Resp 16 16 16 B/P 148/74 143/70 Pulse Ox 97 97 97 O2 Delivery Room Air Room Air Room Air Room Air 10/21/16 10/21/16 10/21/16 10/21/16 18:00 18:32 19:00 20:00 Temp 98.4 98.4 Pulse 87 90 Resp 15 15 16 B/P 124/54 111/54 Pulse Ox 97 96 98 O2 Delivery Room Air Room Air Room Air Room Air 10/21/16 10/21/16 10/21/16 10/21/16 20:00 21:00 22:00 23:00 Pulse 82 82 82 68 Resp 16 16 16 16 B/P 127/60 116/56 121/56 122/62 Pulse Ox 97 97 97 97 O2 Delivery Room Air Room Air Room Air Room Air 10/21/16 10/22/16 10/22/16 10/22/16 23:59 00:00 01:00 02:00 Temp 98.0 98.0 Pulse 78 76 90 Resp 16 16 16 B/P 120/60 118/44 138/52 Pulse Ox 97 97 97 O2 Delivery Room Air Room Air Room Air Room Air 10/22/16 10/22/16 10/22/16 10/22/16 03:00 04:00 04:00 04:54 Temp 98.2 98.2 Pulse 76 82 Resp 16 16 18 B/P 132/59 121/62 Pulse Ox 97 98 O2 Delivery Room Air Room Air Room Air Room Air 10/22/16 10/22/16 10/22/16 10/22/16 05:00 05:24 06:00 07:00 Pulse 87 89 94 Resp 16 18 16 14 B/P 119/59 120/62 121/46 Pulse Ox 97 97 99 O2 Delivery Room Air Room Air Room Air Room Air 10/22/16 10/22/16 10/22/16 08:00 08:00 09:00 Pulse 93 98 Resp 16 26 B/P 133/65 152/73 Pulse Ox 97 100 O2 Delivery Room Air Room Air Room Air Intake and Output 10/21/16 10/21/16 10/22/16 15:00 23:00 07:00 Intake Total 185 ml 1220 ml Output Total 530 ml 585 ml Balance -345 ml 635 ml SAVANNA BLANCO MD Oct 22, 2016 12:24
[2016-10-22] MEDS: LISINOPRIL 10 MG TABLET PO SCH (12:55)
[2016-10-22] MEDS: ACETAMINOPHEN 325 MG TABLET. PO PRN (16:35)
[2016-10-23 02:58] VITALS: BP 111/64
[2016-10-23 05:24] LABS: BASO % 1 % (0-3); EOS % 1 % (0-3); HEMATOCRIT 32.7 % (36.0-47.0); HEMOGLOBIN 11.6 g/dL (12.0-15.5); LYMPH % 28 % (24-48); MEAN CORPUSCULAR HEMOGLOBIN 31 pg (25-35); MEAN CORPUSCULAR HGB CONC 35 g/dL (31-37); MEAN CORPUSCULAR VOLUME 87 fL (79-100); MONO % 10 % (0-9); NEUT % 60 % (31-73); PLATELET COUNT 191 x10^3/uL (140-400); RED BLOOD COUNT 3.78 x10^6/uL (3.50-5.40); RED CELL DISTRIBUTION WIDTH 13.1 % (11.5-14.5); WHITE BLOOD COUNT 7.2 x10^3/uL (4.0-11.0)
[2016-10-23] MEDS: ONDANSETRON PF 4 MG/2 ML VIAL. IV PRN ×2 (05:50→12:38)
[2016-10-23 06:09] LABS: CALCIUM 8.7 mg/dL (8.5-10.1); CREATININE 0.7 mg/dL (0.6-1.0); GFR 80.5; POTASSIUM 3.7 mmol/L (3.5-5.1)
[2016-10-23 07:00] VITALS: BP 123/66
[2016-10-23] MEDS: PANTOPRAZOLE 40 MG TABLET.DR. PO SCH (08:55)
[2016-10-23] MEDS: DOCUSATE SODIUM 100 MG CAPSULE. PO SCH ×2 (08:56→21:00)
[2016-10-23] MEDS: LISINOPRIL 10 MG TABLET PO SCH (08:56)
--- NOTE | 2016-10-23 09:12 | PDOC ---
PROGRESS NOTES Subjective Subjective Patient seen 10/02/16 at 1145 awake, alert no significant headache Objective Objective Vital Signs Date Time Temp Pulse Resp B/P Pulse Ox O2 Delivery O2 Flow Rate FiO2 10/23/16 08:56 96 123/66 10/23/16 07:00 97.9 18 95 Room Air 97.9 10/22/16 12:00 10.0 Intake and Output 10/23/16 07:00 Intake Total 540 ml Output Total 435 ml Balance 105 ml Intake Oral 540 ml Output Urine Total 435 ml # Voids 4 Physical Exam General: Alert, Cooperative, No acute distress, Other (confused at times) MUSCULOSKELETAL: Other (JIMENEZ) Neuro: Other Skin: Other (Drain with 60 cc out, d/c'd without difficulty) Assessment Assessment Problems Medical Problems: (1) Dizziness Status: Acute (2) Subdural hemorrhage Status: Acute Plan Plan of Care may transfer to floor PT Comment Review of Relevant I have reviewed the following items misael (where applicable) has been applied. Labs Laboratory Tests Test 10/21/16 11:10 10/22/16 04:40 10/22/16 04:45 10/23/16 04:00 Nasal Screen MRSA (PCR) Negative (Negative) White Blood Count 8.8x10^3/uL (4.0-11.0) 7.2x10^3/uL (4.0-11.0) Red Blood Count 4.03x10^6/uL (3.50-5.40) 3.78x10^6/uL (3.50-5.40) Hemoglobin 12.2g/dL (12.0-15.5) 11.6g/dL (12.0-15.5) Hematocrit 35.9% (36.0-47.0) 32.7% (36.0-47.0) Mean Corpuscular Volume 89fL (79-100) 87fL (79-100) Mean Corpuscular Hemoglobin 30pg (25-35) 31pg (25-35) Mean Corpuscular Hemoglobin Concent 34g/dL (31-37) 35g/dL (31-37) Red Cell Distribution Width 13.2% (11.5-14.5) 13.1% (11.5-14.5) Platelet Count 206x10^3/uL (140-400) 191x10^3/uL (140-400) Neutrophils (%) (Auto) 74% (31-73) 60% (31-73) Lymphocytes (%) (Auto) 18% (24-48) 28% (24-48) Monocytes (%) (Auto) 8% (0-9) 10% (0-9) Eosinophils (%) (Auto) 0% (0-3) 1% (0-3) Basophils (%) (Auto) 0% (0-3) 1% (0-3) Neutrophils # (Auto) 6.5x10^3uL (1.8-7.7) 4.3x10^3uL (1.8-7.7) Lymphocytes # (Auto) 1.6x10^3/uL (1.0-4.8) 2.0x10^3/uL (1.0-4.8) Monocytes # (Auto) 0.7x10^3/uL (0.0-1.1) 0.7x10^3/uL (0.0-1.1) Eosinophils # (Auto) 0.0x10^3/uL (0.0-0.7) 0.1x10^3/uL (0.0-0.7) Basophils # (Auto) 0.0x10^3/uL (0.0-0.2) 0.0x10^3/uL (0.0-0.2) Sodium Level 139mmol/L (136-145) 141mmol/L (136-145) Potassium Level 4.4mmol/L (3.5-5.1) 3.7mmol/L (3.5-5.1) Chloride Level 106mmol/L (98-107) 105mmol/L (98-107) Carbon Dioxide Level 22mmol/L (21-32) 27mmol/L (21-32) Anion Gap 11 (6-14) 9 (6-14) Blood Urea Nitrogen 14mg/dL (7-20) 14mg/dL (7-20) Creatinine 0.7mg/dL (0.6-1.0) 0.7mg/dL (0.6-1.0) Estimated GFR (Cockcroft-Gault) 80.5 80.5 Glucose Level 92mg/dL (70-99) 85mg/dL (70-99) Calcium Level 9.0mg/dL (8.5-10.1) 8.7mg/dL (8.5-10.1) Laboratory Tests Test 10/23/16 04:00 White Blood Count 7.2x10^3/uL (4.0-11.0) Red Blood Count 3.78x10^6/uL (3.50-5.40) Hemoglobin 11.6g/dL (12.0-15.5) Hematocrit 32.7% (36.0-47.0) Mean Corpuscular Volume 87fL (79-100) Mean Corpuscular Hemoglobin 31pg (25-35) Mean Corpuscular Hemoglobin Concent 35g/dL (31-37) Red Cell Distribution Width 13.1% (11.5-14.5) Platelet Count 191x10^3/uL (140-400) Neutrophils (%) (Auto) 60% (31-73) Lymphocytes (%) (Auto) 28% (24-48) Monocytes (%) (Auto) 10% (0-9) Eosinophils (%) (Auto) 1% (0-3) Basophils (%) (Auto) 1% (0-3) Neutrophils # (Auto) 4.3x10^3uL (1.8-7.7) Lymphocytes # (Auto) 2.0x10^3/uL (1.0-4.8) Monocytes # (Auto) 0.7x10^3/uL (0.0-1.1) Eosinophils # (Auto) 0.1x10^3/uL (0.0-0.7) Basophils # (Auto) 0.0x10^3/uL (0.0-0.2) Sodium Level 141mmol/L (136-145) Potassium Level 3.7mmol/L (3.5-5.1) Chloride Level 105mmol/L (98-107) Carbon Dioxide Level 27mmol/L (21-32) Anion Gap 9 (6-14) Blood Urea Nitrogen 14mg/dL (7-20) Creatinine 0.7mg/dL (0.6-1.0) Estimated GFR (Cockcroft-Gault) 80.5 Glucose Level 85mg/dL (70-99) Calcium Level 8.7mg/dL (8.5-10.1) Medications Current Medications Ondansetron HCl (Zofran) 4 mg 1X ONCE IV Last administered on 10/21/16 08:58 ; Start 10/21/16 at 08:45; Stop 10/21/16 at 08:46; Status DC Meclizine HCl (Antivert) 25 mg 1X ONCE PO Last administered on 10/21/16 09:08 ; Start 10/21/16 at 08:45; Stop 10/21/16 at 08:46; Status DC Ondansetron HCl (Zofran) 4 mg PRN Q8HRS PRN IV NAUSEA/VOMITING; Start 10/21/16 at 09:30; Stop 10/22/16 at 09:29; Status DC Fentanyl Citrate (Fentanyl 2ml Vial) 50 mcg PRN Q2HR PRN IV PAIN Last administered on 10/22/16 04:54; Start 10/21/16 at 09:30; Stop 10/22/16 at 09:29 ; Status DC Acetaminophen 650 mg 650 mg PRN Q4HRS PRN PO FEVER; Start 10/21/16 at 09:30; Stop 10/22/16 at 09:29; Status DC Potassium Chloride/Dextrose/ Sod Cl 1,000 ml @ 75 mls/hr 1X ONCE IV Last administered on 10/21/16 10:18; Start 10/21/16 at 10:00; Stop 10/21/16 at 23:19 ; Status DC Cefazolin Sodium/ Dextrose (Ancef 2gm Premix) 50 ml @ 100 mls/hr 1X PREOP IV Last administered on 10/21/16 13:07; Start 10/21/16 at 09:45; Stop 10/21/16 at 18:00; Status DC Ondansetron HCl (Zofran) 4 mg PRN Q6HRS PRN IV NAUSEA/VOMITING; Start 10/21/16 at 10:00; Stop 10/22/16 at 09:59; Status DC Fentanyl Citrate (Fentanyl 2ml Vial) 25 mcg PRN Q5MIN PRN IV MILD PAIN Last administered on 10/21/16 14:37; Start 10/21/16 at 10:00; Stop 10/22/16 at 09:59 ; Status DC Fentanyl Citrate 50 mcg 50 mcg PRN Q5MIN PRN IV MODERATE PAIN; Start 10/21/16 at 10:00; Stop 10/22/16 at 09:59; Status DC Lactated Ringer's (Iv Lactated Ringers) 1,000 ml @ 30 mls/hr Q24H IV ; Start at 09:54; Stop 10/21/16 at 21:53; Status DC Lidocaine HCl 2 ml PRN 1X PRN ID PRIOR TO IV START; Start 10/21/16 at 10:00; Stop 10/22/16 at 09:59; Status DC Prochlorperazine Edisylate (Compazine) 5 mg PACU PRN PRN IV NAUSEA, MRX1; Start 10/21/16 at 10:00; Stop 10/22/16 at 09:59; Status DC Dexamethasone Sodium Phosphate (Decadron) 20 mg STK-MED ONCE .ROUTE ; Start at 10:19; Stop 10/21/16 at 10:20; Status DC Ondansetron HCl 4 mg 4 mg STK-MED ONCE .ROUTE ; Start 10/21/16 at 10:19; Stop at 10:20; Status DC Propofol (Diprivan) 20 ml @ As Directed STK-MED ONCE IV ; Start 10/21/16 at 10: 19; Stop 10/21/16 at 10:20; Status DC Lidocaine HCl (Lidocaine HCl 2% Abboject) 100 mg STK-MED ONCE .ROUTE ; Start at 10:19; Stop 10/21/16 at 10:20; Status DC Fentanyl Citrate (Fentanyl 2ml Vial) 100 mcg STK-MED ONCE .ROUTE ; Start at 10:19; Stop 10/21/16 at 10:20; Status DC Rocuronium [place] (Zemuron) 50 mg STK-MED ONCE .ROUTE ; Start 10/21/16 at 10:20 ; Stop 10/21/16 at 10:21; Status DC Multi-Ingred Cream/Lotion/Oil/ Oint 7 lukasz 7 lukasz STK-MED ONCE .ROUTE ; Start at 10:26; Stop 10/21/16 at 10:27; Status DC Bacitracin/Sodium Chloride (Bacitracin/Iv Sodium Chloride 0.9% 1000ml Bag) 1, 000 ml @ 1,000 mls/hr 1X PERIOP ONCE IRR Last administered on 10/21/16 13:12 ; Start 10/21/16 at 11:30; Stop 10/21/16 at 12:29; Status DC Cellulose 1 each STK-MED ONCE .ROUTE ; Start 10/21/16 at 11:53; Stop 10/21/16 at 11:54; Status DC Bupivacaine HCl/ Epinephrine Bitart (Sensorcain-Mpf Epi 0.5%-1:[id number]) 30 ml STK -MED ONCE .ROUTE Last administered on 10/21/16 13:12; Start 10/21/16 at 11:53 ; Stop 10/21/16 at 11:54; Status DC Gelatin (Gelfoam Size 100) 1 each STK-MED ONCE .ROUTE Last administered on 13:12; Start 10/21/16 at 11:54; Stop 10/21/16 at 11:55; Status DC Thrombin 20,000 unit STK-MED ONCE TP Last administered on 10/21/16 13:12; Start 10/21/16 at 11:54; Stop 10/21/16 at 11:55; Status DC Phenylephrine HCl 1 mg STK-MED ONCE IV ; Start 10/21/16 at 12:56; Stop 10/21/16 at 12:57; Status DC Glycopyrrolate (Robinul) 1 mg STK-MED ONCE .ROUTE ; Start 10/21/16 at 12:56; Stop 10/21/16 at 12:57; Status DC Neostigmine Methylsulfate 5 mg STK-MED ONCE .ROUTE ; Start 10/21/16 at 13:47; Stop 10/21/16 at 13:48; Status DC Desflurane (Suprane) 30 ml STK-MED ONCE IH ; Start 10/21/16 at 13:49; Stop 10/21 at 13:50; Status DC Sevoflurane (Ultane) 30 ml STK-MED ONCE IH ; Start 10/21/16 at 13:49; Stop 10/21 at 13:50; Status DC Acetaminophen (Tylenol) 650 mg PRN Q6HRS PRN PO FEVER Last administered on 10/22 16:35; Start 10/21/16 at 14:45 Ondansetron HCl (Zofran) 4 mg PRN Q6HRS PRN IV NAUSEA/VOMITING; Start 10/21/16 at 14:45; Stop 10/22/16 at 13:34; Status DC Hydralazine HCl (Apresoline) 5 mg PRN Q4HRS PRN IVP ELEVATED BP, SEE COMMENTS; Start 10/21/16 at 14:45 Pantoprazole Sodium (Protonix) 40 mg DAILYAC PO Last administered on 10/23/16 08:55; Start 10/21/16 at 15:00 Al Hydroxide/Mg Hydroxide (Mylanta Plus Xs) 30 ml PRN Q3HRS PRN PO HEARTBURN / GAS; Start 10/21/16 at 17:15 Calcium Carbonate/ Glycine (Tums) 500 mg PRN Q3HRS PRN PO INDIGESTION Last administered on 10/23/16 04:23; Start 10/21/16 at 17:15 Diphenhydramine HCl (Benadryl) 25 mg PRN Q6HRS PRN PO ITCHING; Start 10/21/16 at 17:15 Diphenhydramine HCl (Benadryl) 25 mg PRN Q6HRS PRN IV ITCHING; Start 10/21/16 at 17:15 Sodium Chloride (Normal Saline Flush) 3 ml QSHIFT PRN IV AFTER MEDS AND BLOOD DRAWS; Start 10/21/16 at 17:15 Dextrose (Dextrose 50%-Water Syringe) 12.5 gm PRN Q15MIN PRN IV SEE COMMENTS; Start 10/21/16 at 17:15 Docusate Sodium (Colace) 100 mg BID PO Last administered on 10/22/16 21:00; Start 10/21/16 at 21:00 Magnesium Hydroxide (Milk Of Magnesia) 2,400 mg PRN Q12HR PRN PO CONSTIPATION; Start 10/21/16 at 17:15 Ondansetron HCl 4 mg 4 mg PRN Q6HRS PRN IV NAUESA, 1ST CHOICE Last administered on 10/23/16 05:50; Start 10/21/16 at 17:15 Cefazolin Sodium/ Sodium Chloride (Ancef/Iv Sodium Chloride 0.9% 50ml) 50 ml @ 100 mls/hr Q8H IV Last administered on 10/22/16 12:54; Start 10/21/16 at 21:00 ; Stop 10/22/16 at 13:29; Status DC Fentanyl Citrate (Fentanyl 2ml Vial) 50 mcg PRN Q2HR PRN IV PAIN; Start at 17:15 Fentanyl Citrate 25 mcg 25 mcg PRN Q2HR PRN IV PAIN Last administered on 17:10; Start 10/21/16 at 17:15 Sodium Chloride (Iv Sodium Chloride 0.9% 1000ml Bag) 1,000 ml @ 75 mls/hr 1X ONCE IV ; Start 10/22/16 at 08:45; Stop 10/22/16 at 22:04; Status DC Lisinopril (Prinivil) 10 mg DAILY PO Last administered on 10/23/16 08:56; Start 10/22/16 at 13:00 Active Scripts Active No Active Prescriptions or Reported Medications Vitals/I & O Vital Sign - Last 24 Hours 10/22/16 10/22/16 10/22/16 10/22/16 10:00 11:00 12:00 12:00 Temp 98.7 98.7 Pulse 96 90 90 Resp B/P 142/71 140/74 151/69 Pulse Ox 97 97 98 O2 Delivery Room Air Room Air Room Air Room Air O2 Flow Rate 10.0 10/22/16 10/22/16 10/22/16 10/22/16 12:54 12:55 13:00 16:00 Temp 98.6 98.6 Pulse 87 84 82 Resp 20 B/P 151/69 141/69 108/78 Pulse Ox 99 97 O2 Delivery Room Air Room Air Room Air 10/22/16 10/22/16 10/22/16 10/22/16 17:10 17:40 19:15 19:50 Temp 98.2 98.2 Pulse 71 Resp 16 16 18 B/P 105/60 Pulse Ox 97 97 98 O2 Delivery Room Air Room Air Room Air Room Air 10/22/16 10/23/16 10/23/16 10/23/16 23:29 02:58 07:00 08:56 Temp 97.9 98.1 97.9 97.9 98.1 97.9 Pulse 74 74 96 96 Resp 18 18 18 B/P 117/66 111/64 123/66 123/66 Pulse Ox 97 98 95 O2 Delivery Room Air Room Air Room Air Intake and Output 10/22/16 10/22/16 10/23/16 15:00 23:00 07:00 Intake Total 60 ml 480 ml Output Total 435 ml Balance -375 ml 480 ml JOSEFA PERDOMO MD Oct 23, 2016 09:12
[2016-10-23] MEDS: fentaNYL PF VIAL 100 MCG/2 ML VIAL IV PRN ×2 (09:47→12:31)
[2016-10-23 11:00] VITALS: BP 146/67
--- NOTE | 2016-10-23 12:41 | PDOC ---
PROGRESS NOTES Chief Complaint Chief Complaint 1. dizzy, headache 2/2 subacute rt subdural hemarrhage, likely 2/2 fall at home , s/p rt craniotomy and hematoma evacuation 10/21 2. HTN 3. H/O cad WITH pci PLAN: may need another ct head, defer to neurosx [facility] consulted, craniotomy and hematoma evacuation on 10/21 keep BP <160/100 need home meds gi ppx increase lisinopril to 20mg daily ptot History of Present Illness History of Present Illness feels ok, headache slightly better, still intermittent 1 PARAM sangueous drainage, off on 10/22 Vitals Vitals Vital Signs Date Time Temp Pulse Resp B/P Pulse Ox O2 Delivery O2 Flow Rate FiO2 10/23/16 12:31 16 95 Room Air 10/23/16 11:00 98.2 87 146/67 98.2 10/23/16 09:47 10.0 Physical Exam Physical Exam 1 PARAM sangueous drainage General: Alert, Cooperative, No acute distress, Other (confused at times) Heart: Regular rate, Normal S1, Normal S2 Lungs: Clear Abdomen: Normal bowel sounds, Soft Extremities: No clubbing Skin: Other (Drain with 60 cc out, d/c'd without difficulty) Labs LABS Laboratory Tests Test 10/23/16 04:00 White Blood Count 7.2x10^3/uL (4.0-11.0) Red Blood Count 3.78x10^6/uL (3.50-5.40) Hemoglobin 11.6g/dL (12.0-15.5) Hematocrit 32.7% (36.0-47.0) Mean Corpuscular Volume 87fL (79-100) Mean Corpuscular Hemoglobin 31pg (25-35) Mean Corpuscular Hemoglobin Concent 35g/dL (31-37) Red Cell Distribution Width 13.1% (11.5-14.5) Platelet Count 191x10^3/uL (140-400) Neutrophils (%) (Auto) 60% (31-73) Lymphocytes (%) (Auto) 28% (24-48) Monocytes (%) (Auto) 10% (0-9) Eosinophils (%) (Auto) 1% (0-3) Basophils (%) (Auto) 1% (0-3) Neutrophils # (Auto) 4.3x10^3uL (1.8-7.7) Lymphocytes # (Auto) 2.0x10^3/uL (1.0-4.8) Monocytes # (Auto) 0.7x10^3/uL (0.0-1.1) Eosinophils # (Auto) 0.1x10^3/uL (0.0-0.7) Basophils # (Auto) 0.0x10^3/uL (0.0-0.2) Sodium Level 141mmol/L (136-145) Potassium Level 3.7mmol/L (3.5-5.1) Chloride Level 105mmol/L (98-107) Carbon Dioxide Level 27mmol/L (21-32) Anion Gap 9 (6-14) Blood Urea Nitrogen 14mg/dL (7-20) Creatinine 0.7mg/dL (0.6-1.0) Estimated GFR (Cockcroft-Gault) 80.5 Glucose Level 85mg/dL (70-99) Calcium Level 8.7mg/dL (8.5-10.1) Review of Systems Review of Systems no fever, chills, sob or chest pain Assessment and Plan Assessmemt and Plan Problems Medical Problems: (1) Dizziness Status: Acute (2) Subdural hemorrhage Status: Acute Problems: Comment Review of Relevant I have reviewed the following items misael (where applicable) has been applied. Labs Laboratory Tests Test 10/22/16 04:40 10/22/16 04:45 10/23/16 04:00 White Blood Count 8.8x10^3/uL (4.0-11.0) 7.2x10^3/uL (4.0-11.0) Red Blood Count 4.03x10^6/uL (3.50-5.40) 3.78x10^6/uL (3.50-5.40) Hemoglobin 12.2g/dL (12.0-15.5) 11.6g/dL (12.0-15.5) Hematocrit 35.9% (36.0-47.0) 32.7% (36.0-47.0) Mean Corpuscular Volume 89fL (79-100) 87fL (79-100) Mean Corpuscular Hemoglobin 30pg (25-35) 31pg (25-35) Mean Corpuscular Hemoglobin Concent 34g/dL (31-37) 35g/dL (31-37) Red Cell Distribution Width 13.2% (11.5-14.5) 13.1% (11.5-14.5) Platelet Count 206x10^3/uL (140-400) 191x10^3/uL (140-400) Neutrophils (%) (Auto) 74% (31-73) 60% (31-73) Lymphocytes (%) (Auto) 18% (24-48) 28% (24-48) Monocytes (%) (Auto) 8% (0-9) 10% (0-9) Eosinophils (%) (Auto) 0% (0-3) 1% (0-3) Basophils (%) (Auto) 0% (0-3) 1% (0-3) Neutrophils # (Auto) 6.5x10^3uL (1.8-7.7) 4.3x10^3uL (1.8-7.7) Lymphocytes # (Auto) 1.6x10^3/uL (1.0-4.8) 2.0x10^3/uL (1.0-4.8) Monocytes # (Auto) 0.7x10^3/uL (0.0-1.1) 0.7x10^3/uL (0.0-1.1) Eosinophils # (Auto) 0.0x10^3/uL (0.0-0.7) 0.1x10^3/uL (0.0-0.7) Basophils # (Auto) 0.0x10^3/uL (0.0-0.2) 0.0x10^3/uL (0.0-0.2) Sodium Level 139mmol/L (136-145) 141mmol/L (136-145) Potassium Level 4.4mmol/L (3.5-5.1) 3.7mmol/L (3.5-5.1) Chloride Level 106mmol/L (98-107) 105mmol/L (98-107) Carbon Dioxide Level 22mmol/L (21-32) 27mmol/L (21-32) Anion Gap 11 (6-14) 9 (6-14) Blood Urea Nitrogen 14mg/dL (7-20) 14mg/dL (7-20) Creatinine 0.7mg/dL (0.6-1.0) 0.7mg/dL (0.6-1.0) Estimated GFR (Cockcroft-Gault) 80.5 80.5 Glucose Level 92mg/dL (70-99) 85mg/dL (70-99) Calcium Level 9.0mg/dL (8.5-10.1) 8.7mg/dL (8.5-10.1) Laboratory Tests Test 10/23/16 04:00 White Blood Count 7.2x10^3/uL (4.0-11.0) Red Blood Count 3.78x10^6/uL (3.50-5.40) Hemoglobin 11.6g/dL (12.0-15.5) Hematocrit 32.7% (36.0-47.0) Mean Corpuscular Volume 87fL (79-100) Mean Corpuscular Hemoglobin 31pg (25-35) Mean Corpuscular Hemoglobin Concent 35g/dL (31-37) Red Cell Distribution Width 13.1% (11.5-14.5) Platelet Count 191x10^3/uL (140-400) Neutrophils (%) (Auto) 60% (31-73) Lymphocytes (%) (Auto) 28% (24-48) Monocytes (%) (Auto) 10% (0-9) Eosinophils (%) (Auto) 1% (0-3) Basophils (%) (Auto) 1% (0-3) Neutrophils # (Auto) 4.3x10^3uL (1.8-7.7) Lymphocytes # (Auto) 2.0x10^3/uL (1.0-4.8) Monocytes # (Auto) 0.7x10^3/uL (0.0-1.1) Eosinophils # (Auto) 0.1x10^3/uL (0.0-0.7) Basophils # (Auto) 0.0x10^3/uL (0.0-0.2) Sodium Level 141mmol/L (136-145) Potassium Level 3.7mmol/L (3.5-5.1) Chloride Level 105mmol/L (98-107) Carbon Dioxide Level 27mmol/L (21-32) Anion Gap 9 (6-14) Blood Urea Nitrogen 14mg/dL (7-20) Creatinine 0.7mg/dL (0.6-1.0) Estimated GFR (Cockcroft-Gault) 80.5 Glucose Level 85mg/dL (70-99) Calcium Level 8.7mg/dL (8.5-10.1) Medications Current Medications Ondansetron HCl (Zofran) 4 mg 1X ONCE IV Last administered on 10/21/16 08:58 ; Start 10/21/16 at 08:45; Stop 10/21/16 at 08:46; Status DC Meclizine HCl (Antivert) 25 mg 1X ONCE PO Last administered on 10/21/16 09:08 ; Start 10/21/16 at 08:45; Stop 10/21/16 at 08:46; Status DC Ondansetron HCl (Zofran) 4 mg PRN Q8HRS PRN IV NAUSEA/VOMITING; Start 10/21/16 at 09:30; Stop 10/22/16 at 09:29; Status DC Fentanyl Citrate (Fentanyl 2ml Vial) 50 mcg PRN Q2HR PRN IV PAIN Last administered on 10/22/16 04:54; Start 10/21/16 at 09:30; Stop 10/22/16 at 09:29 ; Status DC Acetaminophen 650 mg 650 mg PRN Q4HRS PRN PO FEVER; Start 10/21/16 at 09:30; Stop 10/22/16 at 09:29; Status DC Potassium Chloride/Dextrose/ Sod Cl 1,000 ml @ 75 mls/hr 1X ONCE IV Last administered on 10/21/16 10:18; Start 10/21/16 at 10:00; Stop 10/21/16 at 23:19 ; Status DC Cefazolin Sodium/ Dextrose (Ancef 2gm Premix) 50 ml @ 100 mls/hr 1X PREOP IV Last administered on 10/21/16 13:07; Start 10/21/16 at 09:45; Stop 10/21/16 at 18:00; Status DC Ondansetron HCl (Zofran) 4 mg PRN Q6HRS PRN IV NAUSEA/VOMITING; Start 10/21/16 at 10:00; Stop 10/22/16 at 09:59; Status DC Fentanyl Citrate (Fentanyl 2ml Vial) 25 mcg PRN Q5MIN PRN IV MILD PAIN Last administered on 10/21/16t 14:37; Start 10/21/16 at 10:00; Stop 10/22/16 at 09:59 ; Status DC Fentanyl Citrate 50 mcg 50 mcg PRN Q5MIN PRN IV MODERATE PAIN; Start 10/21/16 at 10:00; Stop 10/22/16 at 09:59; Status DC Lactated Ringer's (Iv Lactated Ringers) 1,000 ml @ 30 mls/hr Q24H IV ; Start at 09:54; Stop 10/21/16 at 21:53; Status DC Lidocaine HCl 2 ml PRN 1X PRN ID PRIOR TO IV START; Start 10/21/16 at 10:00; Stop 10/22/16 at 09:59; Status DC Prochlorperazine Edisylate (Compazine) 5 mg PACU PRN PRN IV NAUSEA, MRX1; Start 10/21/16 at 10:00; Stop 10/22/16 at 09:59; Status DC Dexamethasone Sodium Phosphate (Decadron) 20 mg STK-MED ONCE .ROUTE ; Start at 10:19; Stop 10/21/16 at 10:20; Status DC Ondansetron HCl 4 mg 4 mg STK-MED ONCE .ROUTE ; Start 10/21/16 at 10:19; Stop at 10:20; Status DC Propofol (Diprivan) 20 ml @ As Directed STK-MED ONCE IV ; Start 10/21/16 at 10: 19; Stop 10/21/16 at 10:20; Status DC Lidocaine HCl (Lidocaine HCl 2% Abboject) 100 mg STK-MED ONCE .ROUTE ; Start at 10:19; Stop 10/21/16 at 10:20; Status DC Fentanyl Citrate (Fentanyl 2ml Vial) 100 mcg STK-MED ONCE .ROUTE ; Start at 10:19; Stop 10/21/16 at 10:20; Status DC Rocuronium [place] (Zemuron) 50 mg STK-MED ONCE .ROUTE ; Start 10/21/16 at 10:20 ; Stop 10/21/16 at 10:21; Status DC Multi-Ingred Cream/Lotion/Oil/ Oint 7 lukasz 7 lukasz STK-MED ONCE .ROUTE ; Start at 10:26; Stop 10/21/16 at 10:27; Status DC Bacitracin/Sodium Chloride (Bacitracin/Iv Sodium Chloride 0.9% 1000ml Bag) 1, 000 ml @ 1,000 mls/hr 1X PERIOP ONCE IRR Last administered on 10/21/16 13:12 ; Start 10/21/16 at 11:30; Stop 10/21/16 at 12:29; Status DC Cellulose 1 each STK-MED ONCE .ROUTE ; Start 10/21/16 at 11:53; Stop 10/21/16 at 11:54; Status DC Bupivacaine HCl/ Epinephrine Bitart (Sensorcain-Mpf Epi 0.5%-1:860059) 30 ml STK -MED ONCE .ROUTE Last administered on 10/21/16 13:12; Start 10/21/16 at 11:53 ; Stop 10/21/16 at 11:54; Status DC Gelatin (Gelfoam Size 100) 1 each STK-MED ONCE .ROUTE Last administered on 13:12; Start 10/21/16 at 11:54; Stop 10/21/16 at 11:55; Status DC Thrombin 20,000 unit STK-MED ONCE TP Last administered on 10/21/16 13:12; Start 10/21/16 at 11:54; Stop 10/21/16 at 11:55; Status DC Phenylephrine HCl 1 mg STK-MED ONCE IV ; Start 10/21/16 at 12:56; Stop 10/21/16 at 12:57; Status DC Glycopyrrolate (Robinul) 1 mg STK-MED ONCE .ROUTE ; Start 10/21/16 at 12:56; Stop 10/21/16 at 12:57; Status DC Neostigmine Methylsulfate 5 mg STK-MED ONCE .ROUTE ; Start 10/21/16 at 13:47; Stop 10/21/16 at 13:48; Status DC Desflurane (Suprane) 30 ml STK-MED ONCE IH ; Start 10/21/16 at 13:49; Stop 10/21 at 13:50; Status DC Sevoflurane (Ultane) 30 ml STK-MED ONCE IH ; Start 10/21/16 at 13:49; Stop 10/21 at 13:50; Status DC Acetaminophen (Tylenol) 650 mg PRN Q6HRS PRN PO FEVER Last administered on 10/22 16:35; Start 10/21/16 at 14:45 Ondansetron HCl (Zofran) 4 mg PRN Q6HRS PRN IV NAUSEA/VOMITING; Start 10/21/16 at 14:45; Stop 10/22/16 at 13:34; Status DC Hydralazine HCl (Apresoline) 5 mg PRN Q4HRS PRN IVP ELEVATED BP, SEE COMMENTS; Start 10/21/16 at 14:45 Pantoprazole Sodium (Protonix) 40 mg DAILYAC PO Last administered on 10/23/16 08:55; Start 10/21/16 at 15:00 Al Hydroxide/Mg Hydroxide (Mylanta Plus Xs) 30 ml PRN Q3HRS PRN PO HEARTBURN / GAS; Start 10/21/16 at 17:15 Calcium Carbonate/ Glycine (Tums) 500 mg PRN Q3HRS PRN PO INDIGESTION Last administered on 10/23/16 04:23; Start 10/21/16 at 17:15 Diphenhydramine HCl (Benadryl) 25 mg PRN Q6HRS PRN PO ITCHING; Start 10/21/16 at 17:15 Diphenhydramine HCl (Benadryl) 25 mg PRN Q6HRS PRN IV ITCHING; Start 10/21/16 at 17:15 Sodium Chloride (Normal Saline Flush) 3 ml QSHIFT PRN IV AFTER MEDS AND BLOOD DRAWS; Start 10/21/16 at 17:15 Dextrose (Dextrose 50%-Water Syringe) 12.5 gm PRN Q15MIN PRN IV SEE COMMENTS; Start 10/21/16 at 17:15 Docusate Sodium (Colace) 100 mg BID PO Last administered on 10/22/16 21:00; Start 10/21/16 at 21:00 Magnesium Hydroxide (Milk Of Magnesia) 2,400 mg PRN Q12HR PRN PO CONSTIPATION; Start 10/21/16 at 17:15 Ondansetron HCl 4 mg 4 mg PRN Q6HRS PRN IV NAUESA, 1ST CHOICE Last administered on 10/23/16 12:38; Start 10/21/16 at 17:15 Cefazolin Sodium/ Sodium Chloride (Ancef/Iv Sodium Chloride 0.9% 50ml) 50 ml @ 100 mls/hr Q8H IV Last administered on 10/22/16 12:54; Start 10/21/16 at 21:00 ; Stop 10/22/16 at 13:29; Status DC Fentanyl Citrate (Fentanyl 2ml Vial) 50 mcg PRN Q2HR PRN IV PAIN; Start at 17:15 Fentanyl Citrate 25 mcg 25 mcg PRN Q2HR PRN IV PAIN Last administered on 12:31; Start 10/21/16 at 17:15 Sodium Chloride (Iv Sodium Chloride 0.9% 1000ml Bag) 1,000 ml @ 75 mls/hr 1X ONCE IV ; Start 10/22/16 at 08:45; Stop 10/22/16 at 22:04; Status DC Lisinopril (Prinivil) 10 mg DAILY PO Last administered on 10/23/16 08:56; Start 10/22/16 at 13:00 Active Scripts Active No Active Prescriptions or Reported Medications Vitals/I & O Vital Sign - Last 24 Hours 10/22/16 10/22/16 10/22/16 10/22/16 12:54 12:55 13:00 16:00 Temp 98.6 98.6 Pulse 87 84 82 Resp 16 24 20 B/P 151/69 141/69 108/78 Pulse Ox 99 97 O2 Delivery Room Air Room Air Room Air 10/22/16 10/22/16 10/22/16 10/22/16 17:10 19:15 19:50 23:29 Temp 98.2 97.9 98.2 97.9 Pulse 71 74 Resp 16 18 18 B/P 105/60 117/66 Pulse Ox 97 98 97 O2 Delivery Room Air Room Air Room Air Room Air 10/23/16 10/23/16 10/23/16 10/23/16 02:58 07:00 08:00 08:56 Temp 98.1 97.9 98.1 97.9 Pulse 74 96 96 Resp 18 18 B/P 111/64 123/66 123/66 Pulse Ox 98 95 O2 Delivery Room Air Room Air Room Air 10/23/16 10/23/16 10/23/16 10/23/16 09:47 10:17 11:00 12:31 Temp 98.2 98.2 Pulse 87 Resp 16 16 18 16 B/P 146/67 Pulse Ox 95 95 95 95 O2 Delivery Room Air Room Air Room Air Room Air O2 Flow Rate 10.0 Intake and Output 10/22/16 10/22/16 10/23/16 15:00 23:00 07:00 Intake Total 60 ml 480 ml Output Total 435 ml Balance -375 ml 480 ml SAVANNA BLANCO MD Oct 23, 2016 12:41
[2016-10-23 15:00] VITALS: BP 114/60
[2016-10-23 19:15] VITALS: BP 122/64
[2016-10-23] MEDS: ACETAMINOPHEN 325 MG TABLET. PO PRN (21:12)
[2016-10-23 23:00] VITALS: BP 109/65
[2016-10-24 03:23] VITALS: BP 136/76
[2016-10-24 06:01] LABS: BASO % 1 % (0-3); EOS % 1 % (0-3); HEMATOCRIT 35.1 % (36.0-47.0); LYMPH # 1.9 x10^3/uL (1.0-4.8); LYMPH % 26 % (24-48); MEAN CORPUSCULAR HEMOGLOBIN 30 pg (25-35); MEAN CORPUSCULAR HGB CONC 34 g/dL (31-37); MEAN CORPUSCULAR VOLUME 88 fL (79-100); MONO % 9 % (0-9); NEUT % 64 % (31-73); PLATELET COUNT 197 x10^3/uL (140-400); RED BLOOD COUNT 3.99 x10^6/uL (3.50-5.40); WHITE BLOOD COUNT 7.4 x10^3/uL (4.0-11.0)
[2016-10-24 06:30] LABS: CREATININE 0.6 mg/dL (0.6-1.0); GFR 96.2; POTASSIUM 4.1 mmol/L (3.5-5.1)
[2016-10-24 06:57] LABS: CALCIUM 8.8 mg/dL (8.5-10.1)
[2016-10-24 07:00] VITALS: BP 139/72
[2016-10-24] MEDS: PANTOPRAZOLE 40 MG TABLET.DR. PO SCH (07:43)
[2016-10-24] MEDS: ONDANSETRON PF 4 MG/2 ML VIAL. IV PRN (07:43)
[2016-10-24] MEDS: DOCUSATE SODIUM 100 MG CAPSULE. PO SCH ×2 (08:33→21:00)
[2016-10-24] MEDS: LISINOPRIL 20 MG TABLET PO SCH (08:33)
--- NOTE | 2016-10-24 09:49 | PDOC ---
PROGRESS NOTES Subjective Subjective late entry- Patient seen 10/23/16 at 1245 intermittent headache still but better Objective Objective Vital Signs Date Time Temp Pulse Resp B/P Pulse Ox O2 Delivery O2 Flow Rate FiO2 10/24/16 08:33 94 139/72 10/24/16 07:20 Room Air 10/24/16 07:00 98.1 16 93 98.1 10/23/16 09:47 10.0 Intake and Output 10/24/16 07:00 Intake Total 240 ml Balance 240 ml Intake Oral 240 ml # Voids 4 Physical Exam General: Alert, Cooperative, No acute distress, Other (intermittently confused , follows commands) Skin: Other (dressing intact) Assessment Assessment Problems Medical Problems: (1) Dizziness Status: Acute (2) Subdural hemorrhage Status: Acute Plan Plan of Care follow CT head in AM PT Comment Review of Relevant I have reviewed the following items misael (where applicable) has been applied. Labs Laboratory Tests Test 10/23/16 04:00 10/24/16 05:00 White Blood Count 7.2x10^3/uL (4.0-11.0) 7.4x10^3/uL (4.0-11.0) Red Blood Count 3.78x10^6/uL (3.50-5.40) 3.99x10^6/uL (3.50-5.40) Hemoglobin 11.6g/dL (12.0-15.5) 12.0g/dL (12.0-15.5) Hematocrit 32.7% (36.0-47.0) 35.1% (36.0-47.0) Mean Corpuscular Volume 87fL (79-100) 88fL (79-100) Mean Corpuscular Hemoglobin 31pg (25-35) 30pg (25-35) Mean Corpuscular Hemoglobin Concent 35g/dL (31-37) 34g/dL (31-37) Red Cell Distribution Width 13.1% (11.5-14.5) 13.0% (11.5-14.5) Platelet Count 191x10^3/uL (140-400) 197x10^3/uL (140-400) Neutrophils (%) (Auto) 60% (31-73) 64% (31-73) Lymphocytes (%) (Auto) 28% (24-48) 26% (24-48) Monocytes (%) (Auto) 10% (0-9) 9% (0-9) Eosinophils (%) (Auto) 1% (0-3) 1% (0-3) Basophils (%) (Auto) 1% (0-3) 1% (0-3) Neutrophils # (Auto) 4.3x10^3uL (1.8-7.7) 4.7x10^3uL (1.8-7.7) Lymphocytes # (Auto) 2.0x10^3/uL (1.0-4.8) 1.9x10^3/uL (1.0-4.8) Monocytes # (Auto) 0.7x10^3/uL (0.0-1.1) 0.6x10^3/uL (0.0-1.1) Eosinophils # (Auto) 0.1x10^3/uL (0.0-0.7) 0.1x10^3/uL (0.0-0.7) Basophils # (Auto) 0.0x10^3/uL (0.0-0.2) 0.0x10^3/uL (0.0-0.2) Sodium Level 141mmol/L (136-145) 139mmol/L (136-145) Potassium Level 3.7mmol/L (3.5-5.1) 4.1mmol/L (3.5-5.1) Chloride Level 105mmol/L (98-107) 103mmol/L (98-107) Carbon Dioxide Level 27mmol/L (21-32) 28mmol/L (21-32) Anion Gap 9 (6-14) 8 (6-14) Blood Urea Nitrogen 14mg/dL (7-20) 9mg/dL (7-20) Creatinine 0.7mg/dL (0.6-1.0) 0.6mg/dL (0.6-1.0) Estimated GFR (Cockcroft-Gault) 80.5 96.2 Glucose Level 85mg/dL (70-99) 92mg/dL (70-99) Calcium Level 8.7mg/dL (8.5-10.1) 8.8mg/dL (8.5-10.1) Laboratory Tests Test 10/24/16 05:00 White Blood Count 7.4x10^3/uL (4.0-11.0) Red Blood Count 3.99x10^6/uL (3.50-5.40) Hemoglobin 12.0g/dL (12.0-15.5) Hematocrit 35.1% (36.0-47.0) Mean Corpuscular Volume 88fL (79-100) Mean Corpuscular Hemoglobin 30pg (25-35) Mean Corpuscular Hemoglobin Concent 34g/dL (31-37) Red Cell Distribution Width 13.0% (11.5-14.5) Platelet Count 197x10^3/uL (140-400) Neutrophils (%) (Auto) 64% (31-73) Lymphocytes (%) (Auto) 26% (24-48) Monocytes (%) (Auto) 9% (0-9) Eosinophils (%) (Auto) 1% (0-3) Basophils (%) (Auto) 1% (0-3) Neutrophils # (Auto) 4.7x10^3uL (1.8-7.7) Lymphocytes # (Auto) 1.9x10^3/uL (1.0-4.8) Monocytes # (Auto) 0.6x10^3/uL (0.0-1.1) Eosinophils # (Auto) 0.1x10^3/uL (0.0-0.7) Basophils # (Auto) 0.0x10^3/uL (0.0-0.2) Sodium Level 139mmol/L (136-145) Potassium Level 4.1mmol/L (3.5-5.1) Chloride Level 103mmol/L (98-107) Carbon Dioxide Level 28mmol/L (21-32) Anion Gap 8 (6-14) Blood Urea Nitrogen 9mg/dL (7-20) Creatinine 0.6mg/dL (0.6-1.0) Estimated GFR (Cockcroft-Gault) 96.2 Glucose Level 92mg/dL (70-99) Calcium Level 8.8mg/dL (8.5-10.1) Medications Current Medications Ondansetron HCl (Zofran) 4 mg 1X ONCE IV Last administered on 10/21/16 08:58 ; Start 10/21/16 at 08:45; Stop 10/21/16 at 08:46; Status DC Meclizine HCl (Antivert) 25 mg 1X ONCE PO Last administered on 10/21/16 09:08 ; Start 10/21/16 at 08:45; Stop 10/21/16 at 08:46; Status DC Ondansetron HCl (Zofran) 4 mg PRN Q8HRS PRN IV NAUSEA/VOMITING; Start 10/21/16 at 09:30; Stop 10/22/16 at 09:29; Status DC Fentanyl Citrate (Fentanyl 2ml Vial) 50 mcg PRN Q2HR PRN IV PAIN Last administered on 10/22/16 04:54; Start 10/21/16 at 09:30; Stop 10/22/16 at 09:29 ; Status DC Acetaminophen 650 mg 650 mg PRN Q4HRS PRN PO FEVER; Start 10/21/16 at 09:30; Stop 10/22/16 at 09:29; Status DC Potassium Chloride/Dextrose/ Sod Cl 1,000 ml @ 75 mls/hr 1X ONCE IV Last administered on 10/21/16 10:18; Start 10/21/16 at 10:00; Stop 10/21/16 at 23:19 ; Status DC Cefazolin Sodium/ Dextrose (Ancef 2gm Premix) 50 ml @ 100 mls/hr 1X PREOP IV Last administered on 10/21/16 13:07; Start 10/21/16 at 09:45; Stop 10/21/16 at 18:00; Status DC Ondansetron HCl (Zofran) 4 mg PRN Q6HRS PRN IV NAUSEA/VOMITING; Start 10/21/16 at 10:00; Stop 10/22/16 at 09:59; Status DC Fentanyl Citrate (Fentanyl 2ml Vial) 25 mcg PRN Q5MIN PRN IV MILD PAIN Last administered on 10/21/16 14:37; Start 10/21/16 at 10:00; Stop 10/22/16 at 09:59 ; Status DC Fentanyl Citrate 50 mcg 50 mcg PRN Q5MIN PRN IV MODERATE PAIN; Start 10/21/16 at 10:00; Stop 10/22/16 at 09:59; Status DC Lactated Ringer's (Iv Lactated Ringers) 1,000 ml @ 30 mls/hr Q24H IV ; Start at 09:54; Stop 10/21/16 at 21:53; Status DC Lidocaine HCl 2 ml PRN 1X PRN ID PRIOR TO IV START; Start 10/21/16 at 10:00; Stop 10/22/16 at 09:59; Status DC Prochlorperazine Edisylate (Compazine) 5 mg PACU PRN PRN IV NAUSEA, MRX1; Start 10/21/16 at 10:00; Stop 10/22/16 at 09:59; Status DC Dexamethasone Sodium Phosphate (Decadron) 20 mg STK-MED ONCE .ROUTE ; Start at 10:19; Stop 10/21/16 at 10:20; Status DC Ondansetron HCl 4 mg 4 mg STK-MED ONCE .ROUTE ; Start 10/21/16 at 10:19; Stop at 10:20; Status DC Propofol (Diprivan) 20 ml @ As Directed STK-MED ONCE IV ; Start 10/21/16 at 10: 19; Stop 10/21/16 at 10:20; Status DC Lidocaine HCl (Lidocaine HCl 2% Abboject) 100 mg STK-MED ONCE .ROUTE ; Start at 10:19; Stop 10/21/16 at 10:20; Status DC Fentanyl Citrate (Fentanyl 2ml Vial) 100 mcg STK-MED ONCE .ROUTE ; Start at 10:19; Stop 10/21/16 at 10:20; Status DC Rocuronium [place] (Zemuron) 50 mg STK-MED ONCE .ROUTE ; Start 10/21/16 at 10:20 ; Stop 10/21/16 at 10:21; Status DC Multi-Ingred Cream/Lotion/Oil/ Oint 7 lukasz 7 lukasz STK-MED ONCE .ROUTE ; Start at 10:26; Stop 10/21/16 at 10:27; Status DC Bacitracin/Sodium Chloride (Bacitracin/Iv Sodium Chloride 0.9% 1000ml Bag) 1, 000 ml @ 1,000 mls/hr 1X PERIOP ONCE IRR Last administered on 10/21/16t 13:12 ; Start 10/21/16 at 11:30; Stop 10/21/16 at 12:29; Status DC Cellulose 1 each STK-MED ONCE .ROUTE ; Start 10/21/16 at 11:53; Stop 10/21/16 at 11:54; Status DC Bupivacaine HCl/ Epinephrine Bitart (Sensorcain-Mpf Epi 0.5%-1:[id number]) 30 ml STK -MED ONCE .ROUTE Last administered on 10/21/16 13:12; Start 10/21/16 at 11:53 ; Stop 10/21/16 at 11:54; Status DC Gelatin (Gelfoam Size 100) 1 each STK-MED ONCE .ROUTE Last administered on 13:12; Start 10/21/16 at 11:54; Stop 10/21/16 at 11:55; Status DC Thrombin 20,000 unit STK-MED ONCE TP Last administered on 10/21/16 13:12; Start 10/21/16 at 11:54; Stop 10/21/16 at 11:55; Status DC Phenylephrine HCl 1 mg STK-MED ONCE IV ; Start 10/21/16 at 12:56; Stop 10/21/16 at 12:57; Status DC Glycopyrrolate (Robinul) 1 mg STK-MED ONCE .ROUTE ; Start 10/21/16 at 12:56; Stop 10/21/16 at 12:57; Status DC Neostigmine Methylsulfate 5 mg STK-MED ONCE .ROUTE ; Start 10/21/16 at 13:47; Stop 10/21/16 at 13:48; Status DC Desflurane (Suprane) 30 ml STK-MED ONCE IH ; Start 10/21/16 at 13:49; Stop 10/21 at 13:50; Status DC Sevoflurane (Ultane) 30 ml STK-MED ONCE IH ; Start 10/21/16 at 13:49; Stop 10/21 at 13:50; Status DC Acetaminophen (Tylenol) 650 mg PRN Q6HRS PRN PO FEVER Last administered on 10/23 21:12; Start 10/21/16 at 14:45 Ondansetron HCl (Zofran) 4 mg PRN Q6HRS PRN IV NAUSEA/VOMITING; Start 10/21/16 at 14:45; Stop 10/22/16 at 13:34; Status DC Hydralazine HCl (Apresoline) 5 mg PRN Q4HRS PRN IVP ELEVATED BP, SEE COMMENTS; Start 10/21/16 at 14:45 Pantoprazole Sodium (Protonix) 40 mg DAILYAC PO Last administered on 10/24/16 07:43; Start 10/21/16 at 15:00 Al Hydroxide/Mg Hydroxide (Mylanta Plus Xs) 30 ml PRN Q3HRS PRN PO HEARTBURN / GAS; Start 10/21/16 at 17:15 Calcium Carbonate/ Glycine (Tums) 500 mg PRN Q3HRS PRN PO INDIGESTION Last administered on 10/23/16 04:23; Start 10/21/16 at 17:15 Diphenhydramine HCl (Benadryl) 25 mg PRN Q6HRS PRN PO ITCHING; Start 10/21/16 at 17:15 Diphenhydramine HCl (Benadryl) 25 mg PRN Q6HRS PRN IV ITCHING; Start 10/21/16 at 17:15 Sodium Chloride (Normal Saline Flush) 3 ml QSHIFT PRN IV AFTER MEDS AND BLOOD DRAWS; Start 10/21/16 at 17:15 Dextrose (Dextrose 50%-Water Syringe) 12.5 gm PRN Q15MIN PRN IV SEE COMMENTS; Start 10/21/16 at 17:15 Docusate Sodium (Colace) 100 mg BID PO Last administered on 10/22/16 21:00; Start 10/21/16 at 21:00 Magnesium Hydroxide (Milk Of Magnesia) 2,400 mg PRN Q12HR PRN PO CONSTIPATION; Start 10/21/16 at 17:15 Ondansetron HCl 4 mg 4 mg PRN Q6HRS PRN IV NAUESA, 1ST CHOICE Last administered on 10/24/16 07:43; Start 10/21/16 at 17:15 Cefazolin Sodium/ Sodium Chloride (Ancef/Iv Sodium Chloride 0.9% 50ml) 50 ml @ 100 mls/hr Q8H IV Last administered on 10/22/16 12:54; Start 10/21/16 at 21:00 ; Stop 10/22/16 at 13:29; Status DC Fentanyl Citrate (Fentanyl 2ml Vial) 50 mcg PRN Q2HR PRN IV PAIN; Start at 17:15 Fentanyl Citrate 25 mcg 25 mcg PRN Q2HR PRN IV PAIN Last administered on 12:31; Start 10/21/16 at 17:15 Sodium Chloride (Iv Sodium Chloride 0.9% 1000ml Bag) 1,000 ml @ 75 mls/hr 1X ONCE IV ; Start 10/22/16 at 08:45; Stop 10/22/16 at 22:04; Status DC Lisinopril (Prinivil) 10 mg DAILY PO Last administered on 10/23/16 08:56; Start 10/22/16 at 13:00; Stop 10/23/16 at 12:42; Status DC Lisinopril (Prinivil) 20 mg DAILY PO Last administered on 10/24/16 08:33; Start 10/24/16 at 09:00 Active Scripts Active No Active Prescriptions or Reported Medications Vitals/I & O Vital Sign - Last 24 Hours 10/23/16 10/23/16 10/23/16 10/23/16 09:47 11:00 12:31 13:01 Temp 98.2 98.2 Pulse 87 Resp 16 18 16 16 B/P 146/67 Pulse Ox 95 95 95 95 O2 Delivery Room Air Room Air Room Air Room Air O2 Flow Rate 10.0 10/23/16 10/23/16 10/23/16 10/24/16 15:00 19:15 23:00 03:23 Temp 98.1 98.1 98.1 98.0 98.1 98.1 98.1 98.0 Pulse 89 84 71 76 Resp 18 18 18 18 B/P 114/60 122/64 109/65 136/76 Pulse Ox 94 97 97 100 O2 Delivery Room Air Room Air Room Air Room Air 10/24/16 10/24/16 10/24/16 07:00 07:20 08:33 Temp 98.1 98.1 Pulse 94 94 Resp 16 B/P 139/72 139/72 Pulse Ox 93 O2 Delivery Room Air Room Air Intake and Output 10/23/16 10/23/16 10/24/16 15:00 23:00 07:00 Intake Total 240 ml Balance 240 ml JOSEFA PERDOMO MD Oct 24, 2016 09:49
--- NOTE | 2016-10-24 09:56 | PDOC ---
PROGRESS NOTES Chief Complaint Chief Complaint MAE Dizziness ASSESSMENT AND PLAN: 1. SDH: traumatic. s/p rt craniotomy and hematoma evacuation 10/21. NS following; rpt CT head pending 2. HTN: currently well controlled on lisinopril 3. CAD: hx PCI; no secondary prevention meds (?). check lipid profile. 4. Prophylaxis: PPI History of Present Illness History of Present Illness feels fine, no MAE or dizziness. eager to go home to take care of spouse on hospice Vitals Vitals Vital Signs Date Time Temp Pulse Resp B/P Pulse Ox O2 Delivery O2 Flow Rate FiO2 10/24/16 08:33 94 139/72 10/24/16 07:20 Room Air 10/24/16 07:00 98.1 16 93 98.1 10/23/16 09:47 10.0 Physical Exam Physical Exam 1 PARAM sangueous drainage General: Alert, Oriented X3, Cooperative, No acute distress Heart: Regular rate Lungs: Clear Abdomen: Normal bowel sounds, Soft Extremities: No clubbing Skin: No significant lesion Labs LABS Laboratory Tests Test 10/24/16 05:00 White Blood Count 7.4x10^3/uL (4.0-11.0) Red Blood Count 3.99x10^6/uL (3.50-5.40) Hemoglobin 12.0g/dL (12.0-15.5) Hematocrit 35.1% (36.0-47.0) Mean Corpuscular Volume 88fL (79-100) Mean Corpuscular Hemoglobin 30pg (25-35) Mean Corpuscular Hemoglobin Concent 34g/dL (31-37) Red Cell Distribution Width 13.0% (11.5-14.5) Platelet Count 197x10^3/uL (140-400) Neutrophils (%) (Auto) 64% (31-73) Lymphocytes (%) (Auto) 26% (24-48) Monocytes (%) (Auto) 9% (0-9) Eosinophils (%) (Auto) 1% (0-3) Basophils (%) (Auto) 1% (0-3) Neutrophils # (Auto) 4.7x10^3uL (1.8-7.7) Lymphocytes # (Auto) 1.9x10^3/uL (1.0-4.8) Monocytes # (Auto) 0.6x10^3/uL (0.0-1.1) Eosinophils # (Auto) 0.1x10^3/uL (0.0-0.7) Basophils # (Auto) 0.0x10^3/uL (0.0-0.2) Sodium Level 139mmol/L (136-145) Potassium Level 4.1mmol/L (3.5-5.1) Chloride Level 103mmol/L (98-107) Carbon Dioxide Level 28mmol/L (21-32) Anion Gap 8 (6-14) Blood Urea Nitrogen 9mg/dL (7-20) Creatinine 0.6mg/dL (0.6-1.0) Estimated GFR (Cockcroft-Gault) 96.2 Glucose Level 92mg/dL (70-99) Calcium Level 8.8mg/dL (8.5-10.1) JAQUELINE TRIPLETT MD Oct 24, 2016 09:55
--- NOTE | 2016-10-24 09:57 | PDOC ---
PROGRESS NOTES Subjective Subjective awake, alert, talking on telephone denies headache feels good Objective Objective Vital Signs Date Time Temp Pulse Resp B/P Pulse Ox O2 Delivery O2 Flow Rate FiO2 10/24/16 08:33 94 139/72 10/24/16 07:20 Room Air 10/24/16 07:00 98.1 16 93 98.1 10/23/16 09:47 10.0 Intake and Output 10/24/16 07:00 Intake Total 240 ml Balance 240 ml Intake Oral 240 ml # Voids 4 Physical Exam General: Alert, Oriented X3, Cooperative, No acute distress MUSCULOSKELETAL: Other (JIMENEZ) Neuro: Normal speech Psych/Mental Status: Other (dressing dry and intact) Assessment Assessment Problems Medical Problems: (1) Dizziness Status: Acute (2) Subdural hemorrhage Status: Acute Plan Plan of Care follow CT head pending Comment Review of Relevant I have reviewed the following items misael (where applicable) has been applied. Labs Laboratory Tests Test 10/23/16 04:00 10/24/16 05:00 White Blood Count 7.2x10^3/uL (4.0-11.0) 7.4x10^3/uL (4.0-11.0) Red Blood Count 3.78x10^6/uL (3.50-5.40) 3.99x10^6/uL (3.50-5.40) Hemoglobin 11.6g/dL (12.0-15.5) 12.0g/dL (12.0-15.5) Hematocrit 32.7% (36.0-47.0) 35.1% (36.0-47.0) Mean Corpuscular Volume 87fL (79-100) 88fL (79-100) Mean Corpuscular Hemoglobin 31pg (25-35) 30pg (25-35) Mean Corpuscular Hemoglobin Concent 35g/dL (31-37) 34g/dL (31-37) Red Cell Distribution Width 13.1% (11.5-14.5) 13.0% (11.5-14.5) Platelet Count 191x10^3/uL (140-400) 197x10^3/uL (140-400) Neutrophils (%) (Auto) 60% (31-73) 64% (31-73) Lymphocytes (%) (Auto) 28% (24-48) 26% (24-48) Monocytes (%) (Auto) 10% (0-9) 9% (0-9) Eosinophils (%) (Auto) 1% (0-3) 1% (0-3) Basophils (%) (Auto) 1% (0-3) 1% (0-3) Neutrophils # (Auto) 4.3x10^3uL (1.8-7.7) 4.7x10^3uL (1.8-7.7) Lymphocytes # (Auto) 2.0x10^3/uL (1.0-4.8) 1.9x10^3/uL (1.0-4.8) Monocytes # (Auto) 0.7x10^3/uL (0.0-1.1) 0.6x10^3/uL (0.0-1.1) Eosinophils # (Auto) 0.1x10^3/uL (0.0-0.7) 0.1x10^3/uL (0.0-0.7) Basophils # (Auto) 0.0x10^3/uL (0.0-0.2) 0.0x10^3/uL (0.0-0.2) Sodium Level 141mmol/L (136-145) 139mmol/L (136-145) Potassium Level 3.7mmol/L (3.5-5.1) 4.1mmol/L (3.5-5.1) Chloride Level 105mmol/L (98-107) 103mmol/L (98-107) Carbon Dioxide Level 27mmol/L (21-32) 28mmol/L (21-32) Anion Gap 9 (6-14) 8 (6-14) Blood Urea Nitrogen 14mg/dL (7-20) 9mg/dL (7-20) Creatinine 0.7mg/dL (0.6-1.0) 0.6mg/dL (0.6-1.0) Estimated GFR (Cockcroft-Gault) 80.5 96.2 Glucose Level 85mg/dL (70-99) 92mg/dL (70-99) Calcium Level 8.7mg/dL (8.5-10.1) 8.8mg/dL (8.5-10.1) Laboratory Tests Test 10/24/16 05:00 White Blood Count 7.4x10^3/uL (4.0-11.0) Red Blood Count 3.99x10^6/uL (3.50-5.40) Hemoglobin 12.0g/dL (12.0-15.5) Hematocrit 35.1% (36.0-47.0) Mean Corpuscular Volume 88fL (79-100) Mean Corpuscular Hemoglobin 30pg (25-35) Mean Corpuscular Hemoglobin Concent 34g/dL (31-37) Red Cell Distribution Width 13.0% (11.5-14.5) Platelet Count 197x10^3/uL (140-400) Neutrophils (%) (Auto) 64% (31-73) Lymphocytes (%) (Auto) 26% (24-48) Monocytes (%) (Auto) 9% (0-9) Eosinophils (%) (Auto) 1% (0-3) Basophils (%) (Auto) 1% (0-3) Neutrophils # (Auto) 4.7x10^3uL (1.8-7.7) Lymphocytes # (Auto) 1.9x10^3/uL (1.0-4.8) Monocytes # (Auto) 0.6x10^3/uL (0.0-1.1) Eosinophils # (Auto) 0.1x10^3/uL (0.0-0.7) Basophils # (Auto) 0.0x10^3/uL (0.0-0.2) Sodium Level 139mmol/L (136-145) Potassium Level 4.1mmol/L (3.5-5.1) Chloride Level 103mmol/L (98-107) Carbon Dioxide Level 28mmol/L (21-32) Anion Gap 8 (6-14) Blood Urea Nitrogen 9mg/dL (7-20) Creatinine 0.6mg/dL (0.6-1.0) Estimated GFR (Cockcroft-Gault) 96.2 Glucose Level 92mg/dL (70-99) Calcium Level 8.8mg/dL (8.5-10.1) Medications Current Medications Ondansetron HCl (Zofran) 4 mg 1X ONCE IV Last administered on 10/21/16 08:58 ; Start 10/21/16 at 08:45; Stop 10/21/16 at 08:46; Status DC Meclizine HCl (Antivert) 25 mg 1X ONCE PO Last administered on 10/21/16 09:08 ; Start 10/21/16 at 08:45; Stop 10/21/16 at 08:46; Status DC Ondansetron HCl (Zofran) 4 mg PRN Q8HRS PRN IV NAUSEA/VOMITING; Start 10/21/16 at 09:30; Stop 10/22/16 at 09:29; Status DC Fentanyl Citrate (Fentanyl 2ml Vial) 50 mcg PRN Q2HR PRN IV PAIN Last administered on 10/22/16 04:54; Start 10/21/16 at 09:30; Stop 10/22/16 at 09:29 ; Status DC Acetaminophen 650 mg 650 mg PRN Q4HRS PRN PO FEVER; Start 10/21/16 at 09:30; Stop 10/22/16 at 09:29; Status DC Potassium Chloride/Dextrose/ Sod Cl 1,000 ml @ 75 mls/hr 1X ONCE IV Last administered on 10/21/16 10:18; Start 10/21/16 at 10:00; Stop 10/21/16 at 23:19 ; Status DC Cefazolin Sodium/ Dextrose (Ancef 2gm Premix) 50 ml @ 100 mls/hr 1X PREOP IV Last administered on 10/21/16 13:07; Start 10/21/16 at 09:45; Stop 10/21/16 at 18:00; Status DC Ondansetron HCl (Zofran) 4 mg PRN Q6HRS PRN IV NAUSEA/VOMITING; Start 10/21/16 at 10:00; Stop 10/22/16 at 09:59; Status DC Fentanyl Citrate (Fentanyl 2ml Vial) 25 mcg PRN Q5MIN PRN IV MILD PAIN Last administered on 10/21/16 14:37; Start 10/21/16 at 10:00; Stop 10/22/16 at 09:59 ; Status DC Fentanyl Citrate 50 mcg 50 mcg PRN Q5MIN PRN IV MODERATE PAIN; Start 10/21/16 at 10:00; Stop 10/22/16 at 09:59; Status DC Lactated Ringer's (Iv Lactated Ringers) 1,000 ml @ 30 mls/hr Q24H IV ; Start at 09:54; Stop 10/21/16 at 21:53; Status DC Lidocaine HCl 2 ml PRN 1X PRN ID PRIOR TO IV START; Start 10/21/16 at 10:00; Stop 10/22/16 at 09:59; Status DC Prochlorperazine Edisylate (Compazine) 5 mg PACU PRN PRN IV NAUSEA, MRX1; Start 10/21/16 at 10:00; Stop 10/22/16 at 09:59; Status DC Dexamethasone Sodium Phosphate (Decadron) 20 mg STK-MED ONCE .ROUTE ; Start at 10:19; Stop 10/21/16 at 10:20; Status DC Ondansetron HCl 4 mg 4 mg STK-MED ONCE .ROUTE ; Start 10/21/16 at 10:19; Stop at 10:20; Status DC Propofol (Diprivan) 20 ml @ As Directed STK-MED ONCE IV ; Start 10/21/16 at 10: 19; Stop 10/21/16 at 10:20; Status DC Lidocaine HCl (Lidocaine HCl 2% Abboject) 100 mg STK-MED ONCE .ROUTE ; Start at 10:19; Stop 10/21/16 at 10:20; Status DC Fentanyl Citrate (Fentanyl 2ml Vial) 100 mcg STK-MED ONCE .ROUTE ; Start at 10:19; Stop 10/21/16 at 10:20; Status DC Rocuronium Foley (Zemuron) 50 mg STK-MED ONCE .ROUTE ; Start 10/21/16 at 10:20 ; Stop 10/21/16 at 10:21; Status DC Multi-Ingred Cream/Lotion/Oil/ Oint 7 lukasz 7 lukasz STK-MED ONCE .ROUTE ; Start at 10:26; Stop 10/21/16 at 10:27; Status DC Bacitracin/Sodium Chloride (Bacitracin/Iv Sodium Chloride 0.9% 1000ml Bag) 1, 000 ml @ 1,000 mls/hr 1X PERIOP ONCE IRR Last administered on 10/21/16t 13:12 ; Start 10/21/16 at 11:30; Stop 10/21/16 at 12:29; Status DC Cellulose 1 each STK-MED ONCE .ROUTE ; Start 10/21/16 at 11:53; Stop 10/21/16 at 11:54; Status DC Bupivacaine HCl/ Epinephrine Bitart (Sensorcain-Mpf Epi 0.5%-1:[id number]) 30 ml STK -MED ONCE .ROUTE Last administered on 10/21/16 13:12; Start 10/21/16 at 11:53 ; Stop 10/21/16 at 11:54; Status DC Gelatin (Gelfoam Size 100) 1 each STK-MED ONCE .ROUTE Last administered on 13:12; Start 10/21/16 at 11:54; Stop 10/21/16 at 11:55; Status DC Thrombin 20,000 unit STK-MED ONCE TP Last administered on 10/21/16 13:12; Start 10/21/16 at 11:54; Stop 10/21/16 at 11:55; Status DC Phenylephrine HCl 1 mg STK-MED ONCE IV ; Start 10/21/16 at 12:56; Stop 10/21/16 at 12:57; Status DC Glycopyrrolate (Robinul) 1 mg STK-MED ONCE .ROUTE ; Start 10/21/16 at 12:56; Stop 10/21/16 at 12:57; Status DC Neostigmine Methylsulfate 5 mg STK-MED ONCE .ROUTE ; Start 10/21/16 at 13:47; Stop 10/21/16 at 13:48; Status DC Desflurane (Suprane) 30 ml STK-MED ONCE IH ; Start 10/21/16 at 13:49; Stop 10/21 at 13:50; Status DC Sevoflurane (Ultane) 30 ml STK-MED ONCE IH ; Start 10/21/16 at 13:49; Stop 10/21 at 13:50; Status DC Acetaminophen (Tylenol) 650 mg PRN Q6HRS PRN PO FEVER Last administered on 10/23 21:12; Start 10/21/16 at 14:45 Ondansetron HCl (Zofran) 4 mg PRN Q6HRS PRN IV NAUSEA/VOMITING; Start 10/21/16 at 14:45; Stop 10/22/16 at 13:34; Status DC Hydralazine HCl (Apresoline) 5 mg PRN Q4HRS PRN IVP ELEVATED BP, SEE COMMENTS; Start 10/21/16 at 14:45 Pantoprazole Sodium (Protonix) 40 mg DAILYAC PO Last administered on 10/24/16 07:43; Start 10/21/16 at 15:00 Al Hydroxide/Mg Hydroxide (Mylanta Plus Xs) 30 ml PRN Q3HRS PRN PO HEARTBURN / GAS; Start 10/21/16 at 17:15 Calcium Carbonate/ Glycine (Tums) 500 mg PRN Q3HRS PRN PO INDIGESTION Last administered on 10/23/16 04:23; Start 10/21/16 at 17:15 Diphenhydramine HCl (Benadryl) 25 mg PRN Q6HRS PRN PO ITCHING; Start 10/21/16 at 17:15 Diphenhydramine HCl (Benadryl) 25 mg PRN Q6HRS PRN IV ITCHING; Start 10/21/16 at 17:15 Sodium Chloride (Normal Saline Flush) 3 ml QSHIFT PRN IV AFTER MEDS AND BLOOD DRAWS; Start 10/21/16 at 17:15 Dextrose (Dextrose 50%-Water Syringe) 12.5 gm PRN Q15MIN PRN IV SEE COMMENTS; Start 10/21/16 at 17:15 Docusate Sodium (Colace) 100 mg BID PO Last administered on 10/22/16 21:00; Start 10/21/16 at 21:00 Magnesium Hydroxide (Milk Of Magnesia) 2,400 mg PRN Q12HR PRN PO CONSTIPATION; Start 10/21/16 at 17:15 Ondansetron HCl 4 mg 4 mg PRN Q6HRS PRN IV NAUESA, 1ST CHOICE Last administered on 10/24/16 07:43; Start 10/21/16 at 17:15 Cefazolin Sodium/ Sodium Chloride (Ancef/Iv Sodium Chloride 0.9% 50ml) 50 ml @ 100 mls/hr Q8H IV Last administered on 10/22/16 12:54; Start 10/21/16 at 21:00 ; Stop 10/22/16 at 13:29; Status DC Fentanyl Citrate (Fentanyl 2ml Vial) 50 mcg PRN Q2HR PRN IV PAIN; Start at 17:15 Fentanyl Citrate 25 mcg 25 mcg PRN Q2HR PRN IV PAIN Last administered on 12:31; Start 10/21/16 at 17:15 Sodium Chloride (Iv Sodium Chloride 0.9% 1000ml Bag) 1,000 ml @ 75 mls/hr 1X ONCE IV ; Start 10/22/16 at 08:45; Stop 10/22/16 at 22:04; Status DC Lisinopril (Prinivil) 10 mg DAILY PO Last administered on 10/23/16 08:56; Start 10/22/16 at 13:00; Stop 10/23/16 at 12:42; Status DC Lisinopril (Prinivil) 20 mg DAILY PO Last administered on 10/24/16 08:33; Start 10/24/16 at 09:00 Active Scripts Active No Active Prescriptions or Reported Medications Vitals/I & O Vital Sign - Last 24 Hours 10/23/16 10/23/16 10/23/16 10/23/16 11:00 12:31 13:01 15:00 Temp 98.2 98.1 98.2 98.1 Pulse 87 89 Resp 18 B/P 146/67 114/60 Pulse Ox 95 95 95 94 O2 Delivery Room Air Room Air Room Air Room Air 10/23/16 10/23/16 10/24/16 10/24/16 19:15 23:00 03:23 07:00 Temp 98.1 98.1 98.0 98.1 98.1 98.1 98.0 98.1 Pulse 84 71 76 94 Resp 18 16 B/P 122/64 109/65 136/76 139/72 Pulse Ox 97 97 100 93 O2 Delivery Room Air Room Air Room Air Room Air 10/24/16 10/24/16 07:20 08:33 Pulse 94 B/P 139/72 O2 Delivery Room Air Intake and Output 10/23/16 10/23/16 10/24/16 15:00 23:00 07:00 Intake Total 240 ml Balance 240 ml SOPHIE MACKEY [employer] Oct 24, 2016 09:57
[2016-10-24 10:50] VITALS: BP 118/76
--- NOTE | 2016-10-24 12:52 | RAD ---
CT head without contrast History: Follow-up subdural hemorrhage status post craniotomy. Comparison: CT head 10/21/2016. Procedure: Axial images are obtained of the head from the skull base through the vertex without IV contrast. One or more of the following individualized dose reduction techniques were utilized for the study: Automated exposure control Adjustment of mA and/or kV according to patient's size Use of iterative reconstruction technique. Findings: There has been interval right frontoparietal craniotomy. Multiple overlying surgical skin rajwinder are seen. There is interval development of a small amount of expected pneumocephalus. There is interval reduction in size of the mixed attenuation right subdural hemorrhage. On current examination, maximum thickness of the mixed attenuation hemorrhage is estimated at 10 mm (previously approximately 17 mm). There is interval reduction in amount of midline shift; on current examination, there is 8 mm of right to left midline shift of the septum pellucidum (previously approximately 15 mm). No obvious acute ischemic infarction is seen. No intracranial mass is appreciated. Impression: 1. Interval right craniotomy and reduction in amount of right subdural hemorrhage. 2. There is interval decrease in right left midline shift of the septum lucidum, now measuring 8 mm (previously 15 mm).
[2016-10-24 15:00] VITALS: BP 160/78
[2016-10-24 19:15] VITALS: BP 126/59
[2016-10-24 23:27] VITALS: BP 120/68
[2016-10-25 03:40] VITALS: BP 99/56
[2016-10-25 06:02] LABS: BASO % 1 % (0-3); EOS % 1 % (0-3); HEMATOCRIT 36.2 % (36.0-47.0); HEMOGLOBIN 12.8 g/dL (12.0-15.5); LYMPH # 1.9 x10^3/uL (1.0-4.8); LYMPH % 23 % (24-48); MEAN CORPUSCULAR HEMOGLOBIN 31 pg (25-35); MEAN CORPUSCULAR HGB CONC 35 g/dL (31-37); MEAN CORPUSCULAR VOLUME 87 fL (79-100); MONO % 11 % (0-9); NEUT % 64 % (31-73); PLATELET COUNT 220 x10^3/uL (140-400); RED BLOOD COUNT 4.15 x10^6/uL (3.50-5.40); WHITE BLOOD COUNT 8.2 x10^3/uL (4.0-11.0)
[2016-10-25 06:18] LABS: ALBUMIN 3.4 g/dL (3.4-5.0); ALBUMIN/GLOBULIN RATIO 1.1 (1.0-1.7); CALCIUM 9.2 mg/dL (8.5-10.1); CREATININE 0.7 mg/dL (0.6-1.0); GFR 80.5; POTASSIUM 3.9 mmol/L (3.5-5.1); TOTAL BILIRUBIN 0.6 mg/dL (0.2-1.0); TOTAL PROTEIN 6.5 g/dL (6.4-8.2)
[2016-10-25 06:19] LABS: CHOLESTEROL/HDL RATIO 4.6
[2016-10-25 07:00] VITALS: BP 147/77
[2016-10-25] MEDS: PANTOPRAZOLE 40 MG TABLET.DR. PO SCH (08:40)
[2016-10-25] MEDS: LISINOPRIL 20 MG TABLET PO SCH (08:41)
[2016-10-25] MEDS: DOCUSATE SODIUM 100 MG CAPSULE. PO SCH ×2 (08:41→21:00)
--- NOTE | 2016-10-25 09:08 | PDOC ---
PROGRESS NOTES Chief Complaint Chief Complaint MAE Dizziness ASSESSMENT AND PLAN: 1. SDH: traumatic. s/p rt craniotomy and hematoma evacuation 10/21. NS following; rpt CT head with improved findings, incl midline shift 2. HTN: currently well controlled on lisinopril 3. CAD: hx PCI; no secondary prevention meds (?). check lipid profile. 4. Prophylaxis: PPI 5. Dispo: home when cleared by NS History of Present Illness History of Present Illness feels fine, no MAE or dizziness. eager to go home to take care of spouse on hospice Vitals Vitals Vital Signs Date Time Temp Pulse Resp B/P Pulse Ox O2 Delivery O2 Flow Rate FiO2 10/25/16 08:41 85 147/77 10/25/16 07:40 Room Air 10.0 10/25/16 07:00 98.1 16 96 98.1 Physical Exam General: Alert, Oriented X3, Cooperative, No acute distress Heart: Regular rate Lungs: Clear Abdomen: Normal bowel sounds, Soft Extremities: No clubbing Skin: No significant lesion Labs LABS Laboratory Tests Test 10/25/16 05:00 White Blood Count 8.2x10^3/uL (4.0-11.0) Red Blood Count 4.15x10^6/uL (3.50-5.40) Hemoglobin 12.8g/dL (12.0-15.5) Hematocrit 36.2% (36.0-47.0) Mean Corpuscular Volume 87fL (79-100) Mean Corpuscular Hemoglobin 31pg (25-35) Mean Corpuscular Hemoglobin Concent 35g/dL (31-37) Red Cell Distribution Width 13.0% (11.5-14.5) Platelet Count 220x10^3/uL (140-400) Neutrophils (%) (Auto) 64% (31-73) Lymphocytes (%) (Auto) 23% (24-48) Monocytes (%) (Auto) 11% (0-9) Eosinophils (%) (Auto) 1% (0-3) Basophils (%) (Auto) 1% (0-3) Neutrophils # (Auto) 5.3x10^3uL (1.8-7.7) Lymphocytes # (Auto) 1.9x10^3/uL (1.0-4.8) Monocytes # (Auto) 0.9x10^3/uL (0.0-1.1) Eosinophils # (Auto) 0.1x10^3/uL (0.0-0.7) Basophils # (Auto) 0.0x10^3/uL (0.0-0.2) Sodium Level 141mmol/L (136-145) Potassium Level 3.9mmol/L (3.5-5.1) Chloride Level 105mmol/L (98-107) Carbon Dioxide Level 29mmol/L (21-32) Anion Gap 7 (6-14) Blood Urea Nitrogen 9mg/dL (7-20) Creatinine 0.7mg/dL (0.6-1.0) Estimated GFR (Cockcroft-Gault) 80.5 BUN/Creatinine Ratio 13 (6-20) Glucose Level 101mg/dL (70-99) Calcium Level 9.2mg/dL (8.5-10.1) Total Bilirubin 0.6mg/dL (0.2-1.0) Aspartate Amino Transf (AST/SGOT) 24U/L (15-37) Alanine Aminotransferase (ALT/SGPT) 16U/L (14-59) Alkaline Phosphatase 51U/L (46-116) Total Protein 6.5g/dL (6.4-8.2) Albumin 3.4g/dL (3.4-5.0) Albumin/Globulin Ratio 1.1 (1.0-1.7) Triglycerides Level 99mg/dL (0-150) Cholesterol Level 228mg/dL (0-200) LDL Cholesterol, Calculated 158mg/dL (0-100) VLDL Cholesterol, Calculated 20mg/dL (0-40) Non-HDL Cholesterol Calculated 178mg/dL (0-129) HDL Cholesterol 50mg/dL (40-60) Cholesterol/HDL Ratio 4.6 Nutrition Consultation Dietary Evaluation: Recommendations by RD: Increase Calorie Intake, Protein supplementation Comments: Boost pudding BID - 240kcal and 7g protein due to fluctuating intake Expected Outcomes/Goals: to meet >75% est nutr needs Malnutrition Findings: Weight Status: Appropriate JAQUELINE TRIPLETT MD Oct 25, 2016 09:08
[2016-10-25 11:00] VITALS: BP 151/74
[2016-10-25 15:00] VITALS: BP 126/73
[2016-10-25 19:00] VITALS: BP 147/76
[2016-10-25 23:00] VITALS: BP 113/60
[2016-10-26 03:00] VITALS: BP 107/63
[2016-10-26 07:00] VITALS: BP 133/67
[2016-10-26] MEDS: PANTOPRAZOLE 40 MG TABLET.DR. PO SCH (08:45)
[2016-10-26] MEDS: DOCUSATE SODIUM 100 MG CAPSULE. PO SCH (08:46)
[2016-10-26] MEDS: LISINOPRIL 20 MG TABLET PO SCH (08:46)
--- NOTE | 2016-10-26 10:01 | PDOC ---
PROGRESS NOTES Subjective Subjective up in chair denies headache feels good wants to go home Objective Objective Vital Signs Date Time Temp Pulse Resp B/P Pulse Ox O2 Delivery O2 Flow Rate FiO2 10/26/16 08:46 81 133/67 10/26/16 07:10 Room Air 10/26/16 07:00 97.9 16 95 97.9 10/25/16 07:40 10.0 Intake and Output 10/26/16 07:00 Intake Total 120 ml Balance 120 ml Intake Oral 120 ml # Voids 3 Physical Exam General: Alert, Oriented X3, Cooperative, No acute distress MUSCULOSKELETAL: Other (JIMENEZ) Neuro: Normal speech Skin: Other (dressing removed. incision dry, rajwinder intact) Assessment Assessment Problems Medical Problems: (1) Dizziness Status: Acute (2) Subdural hemorrhage Status: Acute Plan Plan of Care f/u CT head improved- october dc from [facility] Will make arrangements fo f/u Ct next week Comment Review of Relevant I have reviewed the following items misael (where applicable) has been applied. Labs Laboratory Tests Test 10/25/16 05:00 White Blood Count 8.2x10^3/uL (4.0-11.0) Red Blood Count 4.15x10^6/uL (3.50-5.40) Hemoglobin 12.8g/dL (12.0-15.5) Hematocrit 36.2% (36.0-47.0) Mean Corpuscular Volume 87fL (79-100) Mean Corpuscular Hemoglobin 31pg (25-35) Mean Corpuscular Hemoglobin Concent 35g/dL (31-37) Red Cell Distribution Width 13.0% (11.5-14.5) Platelet Count 220x10^3/uL (140-400) Neutrophils (%) (Auto) 64% (31-73) Lymphocytes (%) (Auto) 23% (24-48) Monocytes (%) (Auto) 11% (0-9) Eosinophils (%) (Auto) 1% (0-3) Basophils (%) (Auto) 1% (0-3) Neutrophils # (Auto) 5.3x10^3uL (1.8-7.7) Lymphocytes # (Auto) 1.9x10^3/uL (1.0-4.8) Monocytes # (Auto) 0.9x10^3/uL (0.0-1.1) Eosinophils # (Auto) 0.1x10^3/uL (0.0-0.7) Basophils # (Auto) 0.0x10^3/uL (0.0-0.2) Sodium Level 141mmol/L (136-145) Potassium Level 3.9mmol/L (3.5-5.1) Chloride Level 105mmol/L (98-107) Carbon Dioxide Level 29mmol/L (21-32) Anion Gap 7 (6-14) Blood Urea Nitrogen 9mg/dL (7-20) Creatinine 0.7mg/dL (0.6-1.0) Estimated GFR (Cockcroft-Gault) 80.5 BUN/Creatinine Ratio 13 (6-20) Glucose Level 101mg/dL (70-99) Calcium Level 9.2mg/dL (8.5-10.1) Total Bilirubin 0.6mg/dL (0.2-1.0) Aspartate Amino Transf (AST/SGOT) 24U/L (15-37) Alanine Aminotransferase (ALT/SGPT) 16U/L (14-59) Alkaline Phosphatase 51U/L (46-116) Total Protein 6.5g/dL (6.4-8.2) Albumin 3.4g/dL (3.4-5.0) Albumin/Globulin Ratio 1.1 (1.0-1.7) Triglycerides Level 99mg/dL (0-150) Cholesterol Level 228mg/dL (0-200) LDL Cholesterol, Calculated 158mg/dL (0-100) VLDL Cholesterol, Calculated 20mg/dL (0-40) Non-HDL Cholesterol Calculated 178mg/dL (0-129) HDL Cholesterol 50mg/dL (40-60) Cholesterol/HDL Ratio 4.6 Medications Current Medications Ondansetron HCl (Zofran) 4 mg 1X ONCE IV Last administered on 10/21/16 08:58 ; Start 10/21/16 at 08:45; Stop 10/21/16 at 08:46; Status DC Meclizine HCl (Antivert) 25 mg 1X ONCE PO Last administered on 10/21/16 09:08 ; Start 10/21/16 at 08:45; Stop 10/21/16 at 08:46; Status DC Ondansetron HCl (Zofran) 4 mg PRN Q8HRS PRN IV NAUSEA/VOMITING; Start 10/21/16 at 09:30; Stop 10/22/16 at 09:29; Status DC Fentanyl Citrate (Fentanyl 2ml Vial) 50 mcg PRN Q2HR PRN IV PAIN Last administered on 10/22/16 04:54; Start 10/21/16 at 09:30; Stop 10/22/16 at 09:29 ; Status DC Acetaminophen 650 mg 650 mg PRN Q4HRS PRN PO FEVER; Start 10/21/16 at 09:30; Stop 10/22/16 at 09:29; Status DC Potassium Chloride/Dextrose/ Sod Cl 1,000 ml @ 75 mls/hr 1X ONCE IV Last administered on 10/21/16 10:18; Start 10/21/16 at 10:00; Stop 10/21/16 at 23:19 ; Status DC Cefazolin Sodium/ Dextrose (Ancef 2gm Premix) 50 ml @ 100 mls/hr 1X PREOP IV Last administered on 10/21/16 13:07; Start 10/21/16 at 09:45; Stop 10/21/16 at 18:00; Status DC Ondansetron HCl (Zofran) 4 mg PRN Q6HRS PRN IV NAUSEA/VOMITING; Start 10/21/16 at 10:00; Stop 10/22/16 at 09:59; Status DC Fentanyl Citrate (Fentanyl 2ml Vial) 25 mcg PRN Q5MIN PRN IV MILD PAIN Last administered on 10/21/16 14:37; Start 10/21/16 at 10:00; Stop 10/22/16 at 09:59 ; Status DC Fentanyl Citrate 50 mcg 50 mcg PRN Q5MIN PRN IV MODERATE PAIN; Start 10/21/16 at 10:00; Stop 10/22/16 at 09:59; Status DC Lactated Ringer's (Iv Lactated Ringers) 1,000 ml @ 30 mls/hr Q24H IV ; Start at 09:54; Stop 10/21/16 at 21:53; Status DC Lidocaine HCl 2 ml PRN 1X PRN ID PRIOR TO IV START; Start 10/21/16 at 10:00; Stop 10/22/16 at 09:59; Status DC Prochlorperazine Edisylate (Compazine) 5 mg PACU PRN PRN IV NAUSEA, MRX1; Start 10/21/16 at 10:00; Stop 10/22/16 at 09:59; Status DC Dexamethasone Sodium Phosphate (Decadron) 20 mg STK-MED ONCE .ROUTE ; Start at 10:19; Stop 10/21/16 at 10:20; Status DC Ondansetron HCl 4 mg 4 mg STK-MED ONCE .ROUTE ; Start 10/21/16 at 10:19; Stop at 10:20; Status DC Propofol (Diprivan) 20 ml @ As Directed STK-MED ONCE IV ; Start 10/21/16 at 10: 19; Stop 10/21/16 at 10:20; Status DC Lidocaine HCl (Lidocaine HCl 2% Abboject) 100 mg STK-MED ONCE .ROUTE ; Start at 10:19; Stop 10/21/16 at 10:20; Status DC Fentanyl Citrate (Fentanyl 2ml Vial) 100 mcg STK-MED ONCE .ROUTE ; Start at 10:19; Stop 10/21/16 at 10:20; Status DC Rocuronium [place] (Zemuron) 50 mg STK-MED ONCE .ROUTE ; Start 10/21/16 at 10:20 ; Stop 10/21/16 at 10:21; Status DC Multi-Ingred Cream/Lotion/Oil/ Oint 7 lukasz 7 lukasz STK-MED ONCE .ROUTE ; Start at 10:26; Stop 10/21/16 at 10:27; Status DC Bacitracin/Sodium Chloride (Bacitracin/Iv Sodium Chloride 0.9% 1000ml Bag) 1, 000 ml @ 1,000 mls/hr 1X PERIOP ONCE IRR Last administered on 10/21/16 13:12 ; Start 10/21/16 at 11:30; Stop 10/21/16 at 12:29; Status DC Cellulose 1 each STK-MED ONCE .ROUTE ; Start 10/21/16 at 11:53; Stop 10/21/16 at 11:54; Status DC Bupivacaine HCl/ Epinephrine Bitart (Sensorcain-Mpf Epi 0.5%-1:[id number]) 30 ml STK -MED ONCE .ROUTE Last administered on 10/21/16 13:12; Start 10/21/16 at 11:53 ; Stop 10/21/16 at 11:54; Status DC Gelatin (Gelfoam Size 100) 1 each STK-MED ONCE .ROUTE Last administered on 13:12; Start 10/21/16 at 11:54; Stop 10/21/16 at 11:55; Status DC Thrombin 20,000 unit STK-MED ONCE TP Last administered on 10/21/16 13:12; Start 10/21/16 at 11:54; Stop 10/21/16 at 11:55; Status DC Phenylephrine HCl 1 mg STK-MED ONCE IV ; Start 10/21/16 at 12:56; Stop 10/21/16 at 12:57; Status DC Glycopyrrolate (Robinul) 1 mg STK-MED ONCE .ROUTE ; Start 10/21/16 at 12:56; Stop 10/21/16 at 12:57; Status DC Neostigmine Methylsulfate 5 mg STK-MED ONCE .ROUTE ; Start 10/21/16 at 13:47; Stop 10/21/16 at 13:48; Status DC Desflurane (Suprane) 30 ml STK-MED ONCE IH ; Start 10/21/16 at 13:49; Stop 10/21 at 13:50; Status DC Sevoflurane (Ultane) 30 ml STK-MED ONCE IH ; Start 10/21/16 at 13:49; Stop 10/21 at 13:50; Status DC Acetaminophen (Tylenol) 650 mg PRN Q6HRS PRN PO FEVER Last administered on 10/23 21:12; Start 10/21/16 at 14:45 Ondansetron HCl (Zofran) 4 mg PRN Q6HRS PRN IV NAUSEA/VOMITING; Start 10/21/16 at 14:45; Stop 10/22/16 at 13:34; Status DC Hydralazine HCl (Apresoline) 5 mg PRN Q4HRS PRN IVP ELEVATED BP, SEE COMMENTS; Start 10/21/16 at 14:45 Pantoprazole Sodium (Protonix) 40 mg DAILYAC PO Last administered on 10/26/16 08:45; Start 10/21/16 at 15:00 Al Hydroxide/Mg Hydroxide (Mylanta Plus Xs) 30 ml PRN Q3HRS PRN PO HEARTBURN / GAS; Start 10/21/16 at 17:15 Calcium Carbonate/ Glycine (Tums) 500 mg PRN Q3HRS PRN PO INDIGESTION Last administered on 10/23/16 04:23; Start 10/21/16 at 17:15 Diphenhydramine HCl (Benadryl) 25 mg PRN Q6HRS PRN PO ITCHING; Start 10/21/16 at 17:15 Diphenhydramine HCl (Benadryl) 25 mg PRN Q6HRS PRN IV ITCHING; Start 10/21/16 at 17:15 Sodium Chloride (Normal Saline Flush) 3 ml QSHIFT PRN IV AFTER MEDS AND BLOOD DRAWS; Start 10/21/16 at 17:15 Dextrose (Dextrose 50%-Water Syringe) 12.5 gm PRN Q15MIN PRN IV SEE COMMENTS; Start 10/21/16 at 17:15 Docusate Sodium (Colace) 100 mg BID PO Last administered on 10/22/16 21:00; Start 10/21/16 at 21:00 Magnesium Hydroxide (Milk Of Magnesia) 2,400 mg PRN Q12HR PRN PO CONSTIPATION; Start 10/21/16 at 17:15 Ondansetron HCl 4 mg 4 mg PRN Q6HRS PRN IV NAUESA, 1ST CHOICE Last administered on 10/24/16 07:43; Start 10/21/16 at 17:15 Cefazolin Sodium/ Sodium Chloride (Ancef/Iv Sodium Chloride 0.9% 50ml) 50 ml @ 100 mls/hr Q8H IV Last administered on 10/22/16 12:54; Start 10/21/16 at 21:00 ; Stop 10/22/16 at 13:29; Status DC Fentanyl Citrate (Fentanyl 2ml Vial) 50 mcg PRN Q2HR PRN IV PAIN; Start at 17:15 Fentanyl Citrate 25 mcg 25 mcg PRN Q2HR PRN IV PAIN Last administered on 12:31; Start 10/21/16 at 17:15 Sodium Chloride (Iv Sodium Chloride 0.9% 1000ml Bag) 1,000 ml @ 75 mls/hr 1X ONCE IV ; Start 10/22/16 at 08:45; Stop 10/22/16 at 22:04; Status DC Lisinopril (Prinivil) 10 mg DAILY PO Last administered on 10/23/16 08:56; Start 10/22/16 at 13:00; Stop 10/23/16 at 12:42; Status DC Lisinopril (Prinivil) 20 mg DAILY PO Last administered on 10/26/16 08:46; Start 10/24/16 at 09:00 Active Scripts Active No Active Prescriptions or Reported Medications Vitals/I & O Vital Sign - Last 24 Hours 10/25/16 10/25/16 10/25/16 10/25/16 11:00 15:00 19:00 19:40 Temp 97.9 98.1 98.6 97.9 98.1 98.6 Pulse 89 90 86 Resp 16 16 18 B/P 151/74 126/73 147/76 Pulse Ox 96 97 96 O2 Delivery Room Air Room Air Room Air Room Air 10/25/16 10/26/16 10/26/16 10/26/16 23:00 03:00 07:00 07:10 Temp 97.7 97.7 97.9 97.7 97.7 97.9 Pulse 73 73 81 Resp 18 18 16 B/P 113/60 107/63 133/67 Pulse Ox 95 96 95 O2 Delivery Room Air Room Air Room Air Room Air 10/26/16 08:46 Pulse 81 B/P 133/67 Intake and Output 10/25/16 10/25/16 10/26/16 15:00 23:00 07:00 Intake Total 120 ml 0 ml Balance 120 ml 0 ml Nutrition Consultation Dietary Evaluation: Recommendations by RD: Increase Calorie Intake, Protein supplementation Comments: Boost pudding BID - 240kcal and 7g protein due to fluctuating intake Expected Outcomes/Goals: to meet >75% est nutr needs Malnutrition Findings: Weight Status: Appropriate SOPHIE MACKEY VISITOR SERVICES INFORMATION ASSISTANT Oct 26, 2016 10:01
[2016-10-26 11:00] VITALS: BP 139/85
[2016-10-26] MEDS ORDERED: CALC200T23 PO (11:55)
[2016-10-26] MEDS ORDERED: PANT40TA5 PO (11:55)
[2016-10-26] MEDS ORDERED: LISI10TA2 PO (11:55)
[2016-10-26] MEDS ORDERED: DOCU100C5 PO (11:55)
--- NOTE | 2016-10-26 14:32 | PDOC3 ---
Discharge Summary Visit Information Date of Admission: Oct 21, 2016 Date of Discharge: Oct 26, 2016 Admitting Diagnosis: Headache, dizzy Final Diagnosis 1. SDH: traumatic. s/p rt craniotomy and hematoma evacuation 10/21. 2. HTN: currently well controlled on lisinopril 3. CAD: hx PCI; no secondary prevention meds - hyperlipids, she reports intolerance to "all" cholesterol meds, should be on Asa at least 81mg 4. Prophylaxis: PPI for GERD Problems Medical Problems: (1) Dizziness Status: Acute (2) Subdural hemorrhage Status: Acute Brief Hospital Course Allergies Allergies Coded Allergies Type Severity Reaction Last Updated Verified morphine Allergy Unknown 10/21/16 Yes Vital Signs Vital Signs Date Time Temp Pulse Resp B/P Pulse Ox O2 Delivery O2 Flow Rate FiO2 10/26/16 11:00 98.2 100 16 139/85 96 Room Air 98.2 10/25/16 07:40 10.0 Lab Results Laboratory Tests Test 10/25/16 05:00 White Blood Count 8.2x10^3/uL (4.0-11.0) Red Blood Count 4.15x10^6/uL (3.50-5.40) Hemoglobin 12.8g/dL (12.0-15.5) Hematocrit 36.2% (36.0-47.0) Mean Corpuscular Volume 87fL (79-100) Mean Corpuscular Hemoglobin 31pg (25-35) Mean Corpuscular Hemoglobin Concent 35g/dL (31-37) Red Cell Distribution Width 13.0% (11.5-14.5) Platelet Count 220x10^3/uL (140-400) Neutrophils (%) (Auto) 64% (31-73) Lymphocytes (%) (Auto) 23% (24-48) Monocytes (%) (Auto) 11% (0-9) Eosinophils (%) (Auto) 1% (0-3) Basophils (%) (Auto) 1% (0-3) Neutrophils # (Auto) 5.3x10^3uL (1.8-7.7) Lymphocytes # (Auto) 1.9x10^3/uL (1.0-4.8) Monocytes # (Auto) 0.9x10^3/uL (0.0-1.1) Eosinophils # (Auto) 0.1x10^3/uL (0.0-0.7) Basophils # (Auto) 0.0x10^3/uL (0.0-0.2) Sodium Level 141mmol/L (136-145) Potassium Level 3.9mmol/L (3.5-5.1) Chloride Level 105mmol/L (98-107) Carbon Dioxide Level 29mmol/L (21-32) Anion Gap 7 (6-14) Blood Urea Nitrogen 9mg/dL (7-20) Creatinine 0.7mg/dL (0.6-1.0) Estimated GFR (Cockcroft-Gault) 80.5 BUN/Creatinine Ratio 13 (6-20) Glucose Level 101mg/dL (70-99) Calcium Level 9.2mg/dL (8.5-10.1) Total Bilirubin 0.6mg/dL (0.2-1.0) Aspartate Amino Transf (AST/SGOT) 24U/L (15-37) Alanine Aminotransferase (ALT/SGPT) 16U/L (14-59) Alkaline Phosphatase 51U/L (46-116) Total Protein 6.5g/dL (6.4-8.2) Albumin 3.4g/dL (3.4-5.0) Albumin/Globulin Ratio 1.1 (1.0-1.7) Triglycerides Level 99mg/dL (0-150) Cholesterol Level 228mg/dL (0-200) LDL Cholesterol, Calculated 158mg/dL (0-100) VLDL Cholesterol, Calculated 20mg/dL (0-40) Non-HDL Cholesterol Calculated 178mg/dL (0-129) HDL Cholesterol 50mg/dL (40-60) Cholesterol/HDL Ratio 4.6 Brief Hospital Course Ms. Conte is a 81 old female admit w. 1 week of headache and 2 days gait instability. No fall +, nauseated from yesterday, frontal headache, constant. CT in ER showed a large right subdural hemarrhage with left shift, subacute. taken to OR for evac 10/21 CT on 10/24, 1. Interval right craniotomy and reduction in amount of right subdural hemorrhage. 2. There is interval decrease in right left midline shift of the septum lucidum, now measuring 8 mm (previously 15 mm). f/u Dr. Jose Antonio Discharge Information Condition at Discharge: Improved Follow Up: Weeks Disposition/Orders: D/C to Home Scheduled Lisinopril (Lisinopril) 1 TAB PO DAILY Pantoprazole Sodium (Pantoprazole Sodium) 40 MG PO DAILYAC Scheduled PRN Calcium Carbonate (Calcium Carbonate) 500 MG PO PRN Q3HRS PRN PRN INDIGESTION Docusate Sodium (Docusate Sodium) 100 MG PO BID PRN PRN CONSTIPATION Patient Instructions Patient Instructions time > 30 min f/u Dr. Angel Pool, htn and GERD SHILOH WILSON MD Oct 26, 2016 14:32
--- NOTE | 2016-10-26 14:35 | PATHOLOGY ---
PATHOLOGY REPORT * * * * * * * * FINAL DIAGNOSIS: Soft tissue, "membrane," removal: - Fibrous tissue with acute and chronic inflammation, reactive changes, and hemosiderin laden macrophages. (MADHAVI:; d/t: 10/26/16) REPORT ELECTRONICALLY SIGNED BY: Jw Taveras M.D. DATE/TIME: 10/26/2016 14:34 * * * * * * * * GROSS PATHOLOGY: The specimen is received in formalin labeled "Josh Conte, membrane". Received are multiple segments of red-lemus soft tissue measuring 1.1 x 1.0 x 0.2 cm in aggregate dimensions. The specimen is filtered and entirely submitted in cassette A1. (CAA; 10/24/2016) INITIAL CPT CODE(S): A; 24113 Professional services performed by [facility] [place] [address] Technical services performed by [facility] ([facility]) at [address] [place] [address]. SPECIMEN(S) RECEIVED: A.Membrane CLINICAL HISTORY: Subdural hemorrhage PATIENT: JOSH CONTE /AGE: 2 1935 (Age: 81) PATIENT #: [id number] ALT CASE #: SPECIMEN COLLECTION DATE: 10/21/2016 SPECIMEN RECEIVED DATE: 10/21/2016 [facility] - [address] [place] [address] - PHONE: [phone] * * * END OF REPORT * * *
--- NOTE | 2016-10-30 16:27 | OP ---
DATE OF SURGERY: 10/21/2016 PREOPERATIVE DIAGNOSES: Left frontotemporoparietal subacute subdural hematoma with left to right shift. POSTOPERATIVE DIAGNOSIS: Left frontotemporoparietal subacute subdural hematoma with left to right shift. SURGEON: Jean Claude Perdomo M.D. RANCH HAND: Gilmer Jang M.D. OPERATION PERFORMED: Left frontal craniotomy with evacuation of subdural hematoma and removal of membranes and placement of subdural drain. The operation was done with the assistance of Dr. Jang, who assisted with the removal of the subdural as well as the closure. OPERATIVE INDICATIONS: The patient is a very pleasant 81-year-old woman who developed headaches, confusion, and right-sided weakness and inability to ambulate. She was brought to the Emergency Room, and on a CT scan of the head, there was a large left frontotemporoparietal subdural hematoma with visible membranes, subacute subdural. I recommended surgery to evacuate the subdural. I discussed this with the patient's family, and the patient wished for me to go ahead. DESCRIPTION OF PROCEDURE: Following general endotracheal anesthesia, the patient was positioned with a roll beneath her left shoulder. Head was turned to the right. Her scalp was then clipped, prepped and draped in the standard fashion. JAMES hose and AV impulse boots were applied for DVT prophylaxis. The microscope was draped. Ancef 2 g was given less than 1 hour prior to initiation of the surgery. A linear incision was made in the left posterior frontal region. I dissected down through the skin and subcutaneous tissue. I used Aesculap clips along the skin edge. I used periostial to reflect the periosteum and placed self-retaining retractors. I brought in the high-speed air drill with conical bur and placed two carlos holes which were then connected with the craniotome. The dura was opened in a cruciate fashion. There were membranes immediately apparent which I opened through, and there was immediate egress of hematoma. There were second deeper membranes which I also opened, and then I fully irrigated the entire region. As I worked, the brain began to move laterally. I irrigated until the irrigant was clear. I then placed a flap for fully perforated drain which I brought out through a separate stab incision. I closed the dura with a 4-0 Nurolon and a Duragen. I replaced the bone flap and used microplates and 4-mm screws to secure the bone flap. The skin was closed in layers with absorbable suture and skin rajwinder for the skin surface. The operation went very well. The patient was awakened and eventually taken to the Intensive Care Unit in excellent condition. I was quite pleased with the surgery. JEAN CLAUDE PERDOMO MD DR: SYBIL/jennifer JOB#: [id number] / [id number] SCOTT
== END 2016-10-26 12:15 | disposition home or self-care (01) | DRG 25 ==
LOC: ER 08:00 → 1 WEST ICU 09:00 → 4 NORTH 10-22 17:00
PROVIDERS: ADMIT Internal Medicine; ATTEND Internal Medicine
PROC: 009400Z Drainage of Intracranial Subdural Space with Drainage Device, Open Approach (ICD-10-PCS; 2016-10-21)
PROC: 00C40ZZ Extirpation of Matter from Intracranial Subdural Space, Open Approach (ICD-10-PCS; principal; 2016-10-21 11:00)
DX: S06.5X0A Traumatic subdural hemorrhage without loss of consciousness, initial encounter (principal); G93.6 Cerebral edema; Z68.1 Body mass index [BMI] 19.9 or less, adult; I10 Essential (primary) hypertension; I25.10 Atherosclerotic heart disease of native coronary artery without angina pectoris; W19.XXXA Unspecified fall, initial encounter; K21.9 Gastro-esophageal reflux disease without esophagitis; Z88.5 Allergy status to narcotic agent; Y93.89 Activity, other specified; Y92.098 Other place in other non-institutional residence as the place of occurrence of the external cause; Y99.8 Other external cause status
CPT/HCPCS: 36415; 70450; 71010; 80048; 80053; 80061; 82947; 84484; 85027; 85610; 85730; 87641; 88112; 88304; 88305; 93005; 96365; 96375; C1713; J0690; J1100; J2370; J2405; J2704; J2710; J3010; J3490; J7030; J7120; J8597; 97110; 97116; 97530; 97535; 99285-25

== ENCOUNTER → 2016-11-01 | Outpatient (CLI) | payer MEDICARE ==
[2016-10-26 11:00] VITALS: BP 139/85
[~2016-11-01] MED LIST: CALC200T23 PO; DOCU100C5 PO; LISI10TA2 PO; PANT40TA5 PO
--- NOTE | 2016-11-01 13:08 | RAD ---
Indication follow-up subdural hematoma. Noncontrast images of the head were obtained and are compared to an examination 10/24/2016. No acute or unexpected calvarial finding is seen. Changes of a right craniotomy are noted. The visualized paranasal sinuses appear normal. Some mixed density material persists in the right subdural space. Some blood products are noted but evidence of new bleeding is not seen. Maximal thickness of the subdural is approximately 1 cm whereas previously it was approximately 1.2. Some slight effacement of the right lateral ventricle is seen as well as slight midline shift but this too is improved. A new parenchymal finding is not seen. IMPRESSION: Right subdural persists but appears smaller. A new finding is not seen. Some mass effect persists associated with the subdural but this too appears improved PQRS Compliance Statement: One or more of the following individualized dose reduction techniques were utilized for this examination: 1. Automated exposure control 2. Adjustment of the mA and/or kV according to patient size 3. Use of iterative reconstruction technique
== END | disposition home or self-care (01) ==
LOC: CT 12:20
PROVIDERS: ATTEND Neurological Surgery
DX: I62.00 Nontraumatic subdural hemorrhage, unspecified (principal)
CPT/HCPCS: 70450

== ENCOUNTER → 2016-12-01 | Outpatient (CLI) | payer MEDICARE ==
--- NOTE | 2016-12-01 10:36 | KCIC ---
EXAM: Head CT without contrast. HISTORY: Subdural hematoma follow-up. Craniotomy. TECHNIQUE: Computed tomographic images of the head were obtained without contrast. *One or more of the following individualized dose reduction techniques were utilized for this examination: 1. Automated exposure control. 2. Adjustment of the mA and/or kV according to patient size. 3. Use of iterative reconstruction technique. COMPARISON: 11/01/2016. FINDINGS: There has been slight interval decrease in the size of a subdural hematoma along the anterior right cerebral convexity. This measures 8 mm in maximum thickness compared to a prior measurement of 11 mm. The collection is predominantly hypodense and isodense. However, there is a small hyperdense fluid/fluid level. This suggests a possible acute or subacute hemorrhage superimposed on a late subacute to early chronic hemorrhage. There is no significant mass effect or midline shift. There are right frontal craniotomy changes. There is no intraparenchymal hemorrhage. There are subtle areas of hypodensity likely due to chronic small vessel disease. The orbits, paranasal sinuses and mastoid air cells are unremarkable. IMPRESSION: 1. Slight interval decrease in the size of an anterior right cerebral convexity subdural hematoma. This is likely late subacute to early chronic with a superimposed small acute or subacute component. There are overlying craniotomy changes. The previously demonstrated pneumocephalus has resolved. 2. Subtle areas of hypodensity within the cerebral white matter, likely due to chronic small vessel disease. Electronically signed by: Maria Teresa Zuniga MD (12/01/2016 10:33 AM)
== END | disposition home or self-care (01) ==
LOC: KCIC CT 09:59
PROVIDERS: ATTEND Neurological Surgery
DX: I62.00 Nontraumatic subdural hemorrhage, unspecified (principal)
CPT/HCPCS: 70450

== ENCOUNTER → 2017-01-04 | Outpatient (CLI) | payer MEDICARE ==
[~2017-01-04] MED LIST changes: +DOCU100C28 PO; -DOCU100C5 PO
--- NOTE | 2017-01-04 09:08 | KCIC ---
EXAM: CT HEAD WITHOUT CONTRAST. HISTORY: Subdural hematoma. TECHNIQUE: Computed tomography of the head was performed without intravenous contrast. COMPARISON: December 01, 2016. FINDINGS: The right frontal subdural collection is significantly smaller. It now measures only 2 mm in thickness in the right frontal territory. There is no significant midline shift. Hypoattenuation within the periventricular white matter indicates mild chronic microangiopathic change. The ventricles are normal in size and position. The visualized paranasal sinuses appear clear. The orbits are unremarkable. The temporal bones are unremarkable. Right frontal craniotomy changes are noted. There are atherosclerotic calcifications of the internal carotid and vertebral arteries. IMPRESSION: 1. Interval decrease in size in the right frontal subdural collection status post craniotomy. It now measures only 2 mm in thickness. 2. Mild chronic microangiopathic white matter change. *One or more of the following individualized dose reduction techniques were utilized for this examination: 1. Automated exposure control. 2. Adjustment of the mA and/or kV according to patient size. 3. Use of iterative reconstruction technique. Electronically signed by: Lacie Guidry MD (01/04/2017 9:04 AM)
== END | disposition home or self-care (01) ==
LOC: KCIC CT 08:26
PROVIDERS: ATTEND Neurological Surgery
DX: I62.00 Nontraumatic subdural hemorrhage, unspecified (principal)
CPT/HCPCS: 70450

== ENCOUNTER → 2017-02-15 | Outpatient (CLI) | payer MEDICARE ==
--- NOTE | 2017-02-15 09:41 | KCIC ---
PQRS STATEMENT: One or more of the following in the visualized dose reduction techniques were utilized for this study: 1. Automatic exposure control, 2. Adjustment of the mA and/or kV according to patient size, 3. Use of iterative reconstruction technique CT HEAD Indication: Follow-up for subdural hematoma COMPARISON: CT head exams from January 04, 2017 and December 31, 2016 TECHNIQUE: 5 mm contiguous axial images were obtained from the skull base to the vertex in both bone and soft tissue algorithm. FINDINGS: Again noted are postoperative changes of a right frontal craniotomy. There has been a continued decrease in size of the small right frontal convexity subdural hematoma. This causes no midline shift or significant mass effect. No acute hemorrhage is identified. Ventricles are normal in size. IMPRESSION: Continued decrease in size of the small right frontal convexity subdural hematoma. Electronically signed by: Tyrone Mallory MD (02/15/2017 9:37 AM) [place] [id number]
== END | disposition home or self-care (01) ==
LOC: KCIC CT 09:02
PROVIDERS: ATTEND Neurological Surgery
DX: S06.5X9A Traumatic subdural hemorrhage with loss of consciousness of unspecified duration, initial encounter (principal); X58.XXXA Exposure to other specified factors, initial encounter; Y93.89 Activity, other specified; Y92.89 Other specified places as the place of occurrence of the external cause; Y99.8 Other external cause status
CPT/HCPCS: 70450

== ENCOUNTER → 2017-05-30 | Outpatient (CLI) | payer MEDICARE ==
--- NOTE | 2017-05-30 10:04 | KCIC ---
EXAM: Head CT without contrast. HISTORY: Subdural hematoma. TECHNIQUE: Computed tomographic images of the head were obtained without contrast. *One or more of the following individualized dose reduction techniques were utilized for this examination: 1. Automated exposure control. 2. Adjustment of the mA and/or kV according to patient size. 3. Use of iterative reconstruction technique. COMPARISON: 02/15/2017. FINDINGS: There has been very slight interval decrease in the size and attenuation of an early chronic right frontal subdural hematoma, measuring approximately 3 mm in thickness. There are overlying frontal craniotomy changes. There is no mass effect or midline shift. There is no hydrocephalus. There is mild age-appropriate cerebral volume loss. There are scattered areas of hypodensity within the cerebral white matter, likely due to chronic small vessel disease. 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 The paranasal sinuses and mastoid air cells are unremarkable. IMPRESSION: 1. Slight interval decrease in the size and attenuation of an early chronic right frontal subdural hematoma, measuring 3 mm in thickness. 2. Subtle areas of hypodensity within the cerebral white matter, likely due to chronic small vessel disease. Electronically signed by: Maria Teresa Zuniga MD (05/30/2017 10:01 AM) [id number]
== END | disposition home or self-care (01) ==
LOC: KCIC CT 09:25
PROVIDERS: ATTEND Neurological Surgery
DX: I62.03 Nontraumatic chronic subdural hemorrhage (principal); R90.82 White matter disease, unspecified
CPT/HCPCS: 70450

== ENCOUNTER → 2017-09-27 | Outpatient (CLI) | payer MEDICARE | END | disposition home or self-care (01) | LOC: KCIC 13:11 | DX: R51 Headache (principal); Z98.890 Other specified postprocedural states | CPT/HCPCS: 70260 ==